=== PATIENT | male | born 1965 | race Caucasian/White ===

== ENCOUNTER → 2024-11-18 | Outpatient (CLI) | payer OTHER, SELFPAY ==
--- NOTE | 2024-11-18 16:22 | US_ITS ---
PROCEDURE: HEAD/NECK SOFT TISSUE 11/18/2024 REASON FOR EXAM: NODULE RT ANTERIOR TECHNIQUE: HEAD/NECK SOFT TISSUE COMPARISON: None FINDINGS: The palpable lump in the right neck corresponds to enlarged right lobe of the thyroid. Right thyroid nodules are seen. The largest measures 5.1 cm 4.5 cm 3 cm. There is also evidence of left thyroid nodules. A targeted ultrasound of the thyroid gland recommended for further evaluation. US/Head/Neck Soft Tissue IMPRESSION: The palpable lumps in the right neck correspond to enlarged thyroid gland with nodules as described. A dedicated ultrasound of the thyroid gland recommended. Reading Location: [place] [id number]
--- NOTE | 2024-11-18 16:22 | US_ITS ---
PROCEDURE: HEAD/NECK SOFT TISSUE 11/18/2024 REASON FOR EXAM: NODULE RT ANTERIOR TECHNIQUE: HEAD/NECK SOFT TISSUE COMPARISON: None FINDINGS: The palpable lump in the right neck corresponds to enlarged right lobe of the thyroid. Right thyroid nodules are seen. The largest measures 5.1 cm 4.5 cm 3 cm. There is also evidence of left thyroid nodules. A targeted ultrasound of the thyroid gland recommended for further evaluation. US/Head/Neck Soft Tissue IMPRESSION: The palpable lumps in the right neck correspond to enlarged thyroid gland with nodules as described. A dedicated ultrasound of the thyroid gland recommended. Reading Location: [place] [id number]
--- OUTSIDE RECORDS SUMMARY | 2024-11-18 21:27 | XMS RPT_ITS | CCD ---
Author Organization [facility] Inform ion Partnership [facility] Care Team Providers Care Termite Inspector Name Role Phone John Squires Unavailable SURAJ MORENO, DR AJITH Araya Primary Care Physician Caprice Ajith Whitney Referring Unavailable Ajith Jarrell Attending Unavailable Ajith Jarrell Primary Care Unavailable Medications Current Medications Medication Drug Class(es) Dates Sig (Normalized) Sig (Original) cephalexin 500 mg oral capsule (1 source) Cephalosporin Antibacterial Start: 10-26-2021 End: 11-02-2021 cephalexin 500 mg oral capsule Dose : 500 mg = 1 cap(s), Oral, QID, X 7 day(s), # 28 cap(s), 0 Refill(s), 11/02/21 22:37:00 EDT Start Date: 10/26/21 Stop Date: 11/02/21 Status: Ordered sulfamethoxazole 800 mg / trimethoprim 160 mg oral tablet (1 source) Dihydrofolate Reductase Inhibitor Antibacterial, Sulfonamide Antimicrobial Start: 10-26-2021 End: 11-05-2021 take 1 tablet by mouth twice daily Bactrim DS 800 mg-160 mg oral tablet Dose = 1 tab(s), Oral, BID, X 10 day(s), # 20 tab(s), 0 Refill(s) Start Date: 10/26/21 Stop Date: 11/05/21 Status: Ordered Completed/Discontinued Medications Medication Drug Class(es) Dates Sig (Normalized) Sig (Original) amLODIPine 5 mg oral tablet (1 source) Dihydropyridine Calcium Channel Mignon take 1 tablet by mouth once daily NORVASC 5 MG TABS One tablet by mouth daily AMLODIPINE BESYLATE [id number] Bryanna Lazaro LPN lisinopril 40 mg oral tablet (1 source) Angiotensin Converting Enzyme Inhibitor take 1 tablet by mouth once daily LISINOPRIL 40 MG TABS One tablet by mouth daily LISINOPRIL [id number] Bryanna Lazaro [employer] Problems Problem Classification Problem Date Documented Da te Episodic/Chronic Essential hypertension (1 source) Benign hypertension; Translations: [Essential (primary) hypertension] Onset: 12-05-2011 12-05-2011 Chronic Other skin disorders (1 source) Localized swelling, mass and lump, neck; Translations: [Localized swelling, mass and lump, neck] Onset: 11-12-2024 Episodic Skin and subcutaneous tissue infections (1 source) Cellulitis; Translations: [Cellulitis, unspecified] Onset: 10-26-2021 Episodic Unclassified (1 source) Encounter for check-up; Translations: [Encounter for general adult medical examination without abnormal findings] Onset: 02-06-2017 02-06-2017 Unclassified (1 source) General examination of patient ; Translations: [Encounter for other general examination] Onset: 12-05-2011 12-05-2011 Results Test Name Value Interpretation Reference Range Facility XR TIBIA/FIBULA 2 VIEWS LEFT on 10-27-2021 XR TIBIA/FIBULA 2 VIEWS LEFT ORIGINAL EXAMINATION: TWO XRAY VIEWS OF THE LEFT TIBIA/FIBULA 10/26/2021 9:41 pm COMPARISON: None. HISTORY: ORDERING SYSTEM PROVIDED HISTORY: Reason for Exam: pain. Redness and swelling to upper lateral calf. FINDINGS: No acute fracture or dislocation. No large joint effusion. Small plantar calcaneal enthesophyte is noted. There is subcutaneous soft tissue swelling within the lower extremity. IMPRESSION: No acute bony abnormalities. Subcutaneous soft tissue swelling throughout the lower extremity may represent ecchymosis, venous insufficiency edema, or cellulitis. Visual inspection recommended. I have personally reviewed the images of this examination and agree with the resident's findings and interpretation. Interpreted by: Dano Downey Preliminary Report By: Devin Fraire Electronically signed By Dano Downey Dictated Date: 10/26/2021 10:14:22 PM Prelim Date: 10/26/2021 10:20:10 PM Sign Date: 10/26/2021 11:13:21 PM Ordering Provider: FANNIE [facility] [place] .Auto Diffon 10-26-2021 Basophil, Absolute 0.0 10 3/mcL Normal 0.0-0.2 [facility] ([place]) Comment on above: Performed By: #### G FR, BMP #### [address] [address] Basophils/100 WBC (Bld) 0.1 % Normal 0.0-2.5 [facility] [place] Comment on above: Performed By: #### G FR, BMP #### [address] [address] Eosinophil, Absolute 0.1 10 3/mcL Normal 0.0-0.4 [facility] ([place] Comment on above: Performed By: #### G FR, BMP #### [address] [address] Eosinophils/100 WBC (Bld) 0.6 % Normal 0.0-7.0 [facility] [place] Comment on above: Performed By: #### G FR, BMP #### [address] [address] Lymphocyte, Absolute 1.7 10 3/mcL Normal 0.8-3.9 [facility] ([place] Comment on above: Performed By: #### G FR, BMP #### [address] [address] Lymphocytes/100 WBC (Bld) 13.2 % Normal 10.0-50.0 [facility] [place] Comment on above: Performed By: #### G FR, BMP #### [address] [address] Monocyte, Absolute 1.1 10 3/mcL High 0.2-1.0 [facility] ([place] Comment on above: Performed By: #### G FR, BMP #### [address] [address] Monocytes/100 WBC (Bld) 9.0 % Normal 1.7-13.0 [facility] [place] Comment on above: Performed By: #### G FR, BMP #### [address] [address] Neutrophils/100 WBC (Bld) 77.1 % Normal 37.0-80.0 [facility] [place] Comment on above: Performed By: #### G , BMP #### Danny [address] [address] .GFRon 10-26-2021 GFR 74 ml/min/1.73sqm Normal [facility] [place] Comment on above: Result Comment: GFR Population mean for , Non- Americans Ages 20-29 = 116 mL/min/1.73 sq.m. Ages 30-39 = 107 mL/min/1.73 sq.m. Ages 40-49 = 99 mL/min/1.73 sq.m. Ages 50-59 = 93 mL/min/1.73 sq.m. Ages 60-69 = 85 mL/min/1.73 sq.m. Ages 70+ = 75 mL/min/1.73 sq.m. Chronic Kidney Disease: Less than 60 mL/min/1.73 square meters End Stage Renal Disease: Less than 15 mL/min/1.73 square meters Performed By: #### G , BMP #### [address] [address] GFR Non- 61 ml/min/1.73sqm Normal [facility] [place] Comment on above: Result Comment: GFR Population mean for , Non- Americans Ages 20-29 = 116 mL/min/1.73 sq.m. Ages 30-39 = 107 mL/min/1.73 sq.m. Ages 40-49 = 99 mL/min/1.73 sq.m. Ages 50-59 = 93 mL/min/1.73 sq.m. Ages 60-69 = 85 mL/min/1.73 sq.m. Ages 70+ = 75 mL/min/1.73 sq.m. Chronic Kidney Disease: Less than 60 mL/min/1.73 square meters End Stage Renal Disease: Less than 15 mL/min/1.73 square meters Performed By: #### G FR, BMP #### [address] [address] .MDWon 10-26-2021 Monocyte Distribution Width 18.01 Normal 0.00-20.00 [facility] [place] Comment on above: Result Comment: For ED adult patients suspected of sepsis, MDW<=20.0 does not rule out sepsis or risk of sepsis Performed By: #### G , BMP #### [address] [address] .NEUABSon 10-26-2021 Neutrophil, Absolute 9.7 10 3/mcL High 2.9-6.2 [facility] ([place] Comment on above: Performed By: #### G , BMP #### [address] [address] BMPon 10-26-2021 BUN/Creatinine Ratio 11 ratio Normal 7-27 [facility] ([place] Comment on above: Performed By: #### Hola LR, BMP #### [address] [address] Calcium [Mass/Vol] 8.8 mg/dL Normal 8.4-10.2 [facility] ([place] Comment on above: Performed By: #### Hola LR, BMP #### [address] [address] Chloride [Moles/Vol] 101 mmol/L Normal 98-107 [facility] ([place] Comment on above: Performed By: #### G , BMP #### [address] [address] CO2 [Moles/Vol] 33 mmol/L High 22-29 [facility] ([place] Comment on above: Performed By: #### G , BMP #### [address] [address] Creatinine [Mass/Vol] 1.23 mg/dL Normal 0.70-1.30 [facility] ([place] Comment on above: Performed By: #### G FR, BMP #### [address] [address] Electrolyte Balance 5.0 mEq/L Normal 4.0-15.0 [facility] ([place] Comment on above: Performed By: #### G , BMP #### [address] [address] Glucose [Mass/Vol] 132 mg/dL High 70-105 [facility] ([place] Comment on above: Performed By: #### G , BMP #### [address] [address] Potassium [Moles/Vol] 3.1 mmol/L Low 3.5-5.1 [facility] ([place] Comment on above: Performed By: #### G , BMP #### [address] [address] Sodium [Moles/Vol] 139 mmol/L Normal 136-145 [facility] ([place] Comment on above: Performed By: #### Hola LR, BMP #### [address] [address] Urea nitrogen [Mass/Vol] 13 mg/dL Normal 7-18 [facility] [place] Comment on above: Performed By: #### Hola LR, BMP #### [address] [address] CBCon 10-26-2021 Erythrocyte distribution width (RBC) [Ratio] 12.9 % Normal 11.5-14.5 [facility] [place] Comment on above: Performed By: #### Hola LR, BMP #### [address] [address] Hematocrit (Bld) [Volume fraction] 41.4 % Low 42.0-52.0 [facility] [place] Comment on above: Performed By: #### G , BMP #### [address] [address] Hgb 14.0 G/dL Normal 14.0-18.0 [facility] [place] Comment on above: Performed By: #### G , BMP #### [address] [address] MCH (RBC) [Entitic mass] 29.0 pg Normal 27.0-31.2 [facility] [place] Comment on above: Performed By: #### G FR, BMP #### [address] [address] MCHC 33.9 G/dL Normal 31.8-35.4 [facility] [place] Comment on above: Performed By: #### G FR, BMP #### [address] [address] MCV (RBC) [Entitic vol] 85.4 fL Normal 80.0-94.0 [facility] [place] Comment on above: Performed By: #### G FR, BMP #### [address] [address] Platelet 288 10 3/mcL Normal 130-400 [facility] ([place] Comment on above: Performed By: #### G FR, BMP #### [address] [address] Platelet mean volume (Bld) [Entitic vol] 7.9 fL Normal 7.4-10.4 [facility] ([place] Comment on above: Performed By: #### G FR, BMP #### [address] [address] RBC 4.84 10 6/mcL Normal 4.04-6.13 [facility] ([place] Comment on above: Performed By: #### G FR, BMP #### [address] [address] WBC 12.6 10 3/mcL High 4.6-10.8 [facility] ([place] Comment on above: Performed By: #### G FR, BMP #### [address] [address] LABORATORYOrdered By: Marycruz Davis on 10-26-2021 Basophil, Absolute 0.0 103/mcL Invalid Interpretation Code 0.0 - 0.2 10^3/mcL AO Workflow SS Basophils/100 WBC (Bld) 0.1 % Invalid Interpretation Code 0.0 - 2.5 % AO Workflow SS Eosinophil, Absolute 0.1 103/mcL Invalid Interpretation Code 0.0 - 0.4 10^3/mcL AO Workflow SS Eosinophils/100 WBC (Bld) 0.6 % Invalid Interpretation Code 0.0 - 7.0 % AO Workflow SS Erythrocyte distribution width (RBC) [Ratio] 12.9 % Invalid Interpretation Code 11.5 - 14.5 % AO Workflow SS Hematocrit (Bld) [Volume fraction] 41.4 % Invalid Interpretation Code 42.0 - 52.0 % AO Workflow SS Hemoglobin (Bld) [Mass/Vol] 14.0 G/dL Invalid Interpretation Code 14.0 - 18.0 G/dL AO Workflow SS Lymphocyte, Absolute 1.7 103/mcL Invalid Interpretation Code 0.8 - 3.9 10^3/mcL AO Workflow SS Lymphocytes/100 WBC (Bld) 13.2 % Invalid Interpretation Code 10.0 - 50.0 % AO Workflow SS MCH (RBC) [Entitic mass] 29.0 pg Invalid Interpretation Code 27.0 - 31.2 pg AO Workflow SS MCHC 33.9 G/dL Invalid Interpretation Code 31.8 - 35.4 G/dL AO Workflow SS MCV (RBC) [Entitic vol] 85.4 fL Invalid Interpretation Code 80.0 - 94.0 fL AO Workflow SS Monocyte distribution width Auto (Bld) [Entitic vol] 18.01 Invalid Interpretation Code 0.00 - 20.00 AO Workflow SS Comment on above: Result Comment: For ED adult patients suspected of sepsis, MDW<=20.0 does not rule out sepsis or risk of sepsis Monocyte, Absolute 1.1 103/mcL Invalid Interpretation Code 0.2 - 1.0 10^3/mcL AO Workflow SS Monocytes/100 WBC (Bld) 9.0 % Invalid Interpretation Code 1.7 - 13.0 % AO Workflow SS Neutrophil, Absolute 9.7 103/mcL Invalid Interpretation Code 2.9 - 6.2 10^3/mcL AO Workflow SS Neutrophils/100 WBC (Bld) 77.1 % Invalid Interpretation Code 37.0 - 80.0 % AO Workflow SS Platelet mean volume (Bld) [Entitic vol] 7.9 fL Invalid Interpretation Code 7.4 - 10.4 fL AO Workflow SS Platelets (Bld) [#/Vol] 288 103/mcL Invalid Interpretation Code 130 - 400 10^3/mcL AO Workflow SS RBC (Bld) [#/Vol] 4.84 106/mcL Invalid Interpretation Code 4.04 - 6.13 10^6/mcL AO Workflow SS WBC 12.6 103/mcL Invalid Interpretation Code 4.6 - 10.8 10^3/mcL AO Workflow SS LABORATORYOrdered By: Emely Bhat on 10-26-2021 Calcium [Mass/Vol] 8.8 mg/dL Invalid Interpretation Code 8.4 - 10.2 mg/dL AO ADM SS Chloride [Moles/Vol] 101 mmol/L Invalid Interpretation Code 98 - 107 mmol/L AO ADM SS CO2 [Moles/Vol] 33 mmol/L Invalid Interpretation Code 22 - 29 mmol/L AO ADM SS Creatinine [Mass/Vol] 1.23 mg/dL Invalid Interpretation Code 0.70 - 1.30 mg/dL AO ADM SS Electrolyte Balance 5.0 mEq/L Invalid Interpretation Code 4.0 - 15.0 mEq/L AO ADM SS Glucose [Mass/Vol] 132 mg/dL Invalid Interpretation Code 70 - 105 mg/dL AO ADM SS Potassium [Moles/Vol] 3.1 mmol/L Invalid Interpretation Code 3.5 - 5.1 mmol/L AO ADM SS Sodium [Moles/Vol] 139 mmol/L Invalid Interpretation Code 136 - 145 mmol/L AO ADM SS Urea nitrogen [Mass/Vol] 13 mg/dL Invalid Interpretation Code 7 - 18 mg/dL AO ADM SS Urea nitrogen/Creatinine [Mass ratio] 11 ratio Invalid Interpretation Code 7 - 27 ratio AO ADM SS LABORATORYOrdered By: SYSTEM SYSTEM on 10-26-2021 GFR 74 ml/min/1.73sqm Invalid Interpretation Code AO Chemistry S GFR Non- 61 ml/min/1.73sqm Invalid Interpretation Code AO Chemistry S Office Visiton 12-05-2011 Documentation of current medications (procedure) Done Invalid Interpretation Code [facility] Work Phone: [facility] t[facility] None Detected ug/L Normal 0.0-14.9 [facility] No w Clinic Work Phone: Lab Report: [facility] 09-03-19 11 Calcium 8.8 mg/dL Normal 8.5-10.1 [facility] Work Phone: Chloride 102 mmol/L Normal 98-107 [facility] Work Phone: Creatinine 0.9 mg/dL Normal 0.8-1.3 [facility] Work Phone: Glucose mass conc 97 mg/dL Normal 70-110 [facility] Work Phone: Potassium molar conc 3.7 mmol/L Normal 3.5-5.1 [facility] Work Phone: Sodium 140 mmol/L Normal 136-145 [facility] Work Phone: Urea nitrogen 11 mg/dL Normal 7-18 [facility] Now Cli giselle Work Phone: Lab Report: CBCDon 011 Erythrocytes (RBC) 4.83 10*6/uL Normal 4.6-6.2 [facility] Work Phone: Hematocrit (HCT) 42.5 % Normal 40-54 [facility] Work Phone: Hemoglobin mass conc (Bld) 14.2 g/dL Normal 14.0-18.0 [facility] Work Phone: Platelets 278 10*3/mm3 Normal 150-450 [facility] Now [facility] ic Work Phone: WBC (Leukocytes) 6.7 10*3/uL Normal 4.4-11.0 [facility] Work Phone: Lab Report: WCLIPIDon 2010 Cholesterol 184 mg/dL Normal 200 [facility] c Work Phone: HDL Cholesterol 39 mg/dL Low [facility] Work Phone: LDL Cholesterol 118 mg/dL Normal 0-130 [facility] Work Phone: Triglyceride 136 mg/dL Normal [facility] Now Clin ic Work Phone: very low density lipoproteins 27 mg/dL Normal 5-40 [facility] Work Phone: Lab Report: LIVERon 2010 Alanine aminotransferase (ALT) 55 U/L Normal 12-78 [facility] Work Phone: Albumin 4.0 g/dL Normal 3.4-5.0 [facility] Work Phone: Alkaline phosphatase (ALP) 68 U/L Normal 50-136 [facility] Work Phone: Aspartate aminotransferase (AST) 30 U/L Normal 15-37 [facility] Work Phone: Bilirubin (direct) 0.17 mg/dL Normal 0.00-0.30 [facility] No w Clinic Work Phone: Bilirubin (total) 0.70 mg/dL Normal 0.00-1.00 [facility] Work Phone: Clinical Lists Update: 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 08-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 Tobacco use CPHS never Invalid Interpretation Code [facility] Work Phone: Vital Signs Date Time Vital Sign Value Performing Clinician Facility 10-26-2021 22:40-0400 Body temperature 101.3 [degF] DR FANNIE BARRETO MD [facility] 10-26-2021 22:40-0400 Diastolic blood pressure 74 mm[Hg] DR FANNIE BARRETO MD [facility] 10-26-2021 22:40-0400 Heart rate 73 /min DR FANNIE BARRETO MD [facility] 10-26-2021 22:40-0400 Respiratory rate 18 /min DR FANNIE BARRETO MD [facility] 10-26-2021 22:40-0400 Systolic blood pressure 135 mm[Hg] DR FANNIE BARRETO MD [facility] 10-26-2021 20:04-0400 Body temperature 101.66 [degF] DR FANNIE BARRETO MD [facility] 10-26-2021 20:04-0400 Diastolic blood pressure 85 mm[Hg] DR FANNIE BARRETO MD [facility] 10-26-2021 20:04-0400 Heart rate 81 /min DR FANNIE BARRETO MD [facility] 10-26-2021 20:04-0400 Respiratory rate 18 /min DR FANNIE BARRETO MD [facility] 10-26-2021 20:04-0400 Systolic blood pressure 164 mm[Hg] DR FANNIE BARRETO MD [facility] 12-05-2011 11:00-0400 BMI (Body Mass Index) 32.07 kg/m2 John LOPEZ [facility] Work Phone: 12-05-2011 11:00-0400 Body Temperature 97.5 [degF] John LOPEZ [facility] Work Phone: 12-05-2011 11:00-0400 BP Diastolic 96 mm[Hg] John LOPEZ [facility] Work Phone: 12-05-2011 11:00-0400 BP Systolic 156 mm[Hg] John LOPEZ [facility] Work Phone: 12-05-2011 11:00-0400 Pulse (Heart Rate) 65 /min John LOPEZ [facility] Work Phone: 12-05-2011 11:00-0400 Respiratory Rate 13 /min John LOPEZ [facility] Work Phone: 12-05-2011 11:00-0400 Weight 106.87 kg John LOPEZ [facility] Work Phone: 09-27-2010 09:28-0400 Height 182.88 cm John LOPEZ [facility] Work Phone: Encounters Encounter Date Encounter Type Care Provider Facility Start: 11-18-2024 [facility] Facility:[facility] Start: 10-26-2021 End: 10-26-2021 Emergency department patient visit DR FANNIE BARRETO MD [facility] Procedures Date Procedure Procedure Detail Performing Clinician Start: 08-19-2010 End: 05-20-2011 Cardiovascular stress test using treadmill Baljit Lange MD Start: 08-19-2010 End: 05-20-2011 Chest x-ray Baljit Lange MD Start: 08-19-2010 End: 05-20-2011 Electrocardiogram Baljit Lange MD Start: 08-19-2010 End: 05-20-2011 Pulmonary Fuction Test - complete Baljit Lange MD Start: 08-19-2010 End: 05-20-2011 Other Baljit Lange MD Plan of Treatment Date Care Activity Detail Author Start: 02-15-2017 End: 02-15-2017 Appointment Appointment [facility] Work Phone: Start: 02-06-2017 End: 02-06-2017 Chest x-ray X-Ray, Chest, PA & Lateral [facility] Work Phone: Start: 08-19-2010 End: 05-20-2011 Cardiovascular stress test using treadmill Treadmill stress test (no imaging) [facility] Work Phone: Start: 08-19-2010 End: 05-20-2011 Chest x-ray X-Ray, Chest, PA & Lateral [facility] Work Phone: Start: 08-19-2010 End: 05-20-2011 Electrocardiogram EKG [facility] Work Phone: Start: 08-19-2010 End: 05-20-2011 Pulmonary Fuction Test - complete Pulmonary Fuction Test - complete [facility] Work Phone: Start: 08-19-2010 End: 05-20-2011 Other Other [facility] Work Phone: Payers Date Payer Category Payer Private Health Insurance [id number] 2024 Self-pay Unknown [id number] Social History Date Type Detail Facility Start: 10-26-2021 Tobacco smoking status Never s moked tobacco (finding) [facility] Sex Assigned At Sex [facility] Functional Status Date Assessment Result Facility 10-26-2021 Functional Status Ambulating in chakraborty, Ambulating in room, Awake, Bathroom privileges [facility] Mental Status Date Assessment Result Facility 10-26-2021 Mental Status Oriented x [address] [facility] Clinical Note 11-01-2021 Note Date & Type Note Facility 11-01-2021 Note . MICRO - Microbiology PROCEDURE: Blood Culture (bacterial) [*1] SOURCE: Blood BODY SITE: COLLECTED DATE/TIME: 10/26/2021 21:14 EDT RECEIVED DATE/TIME: 10/27/2021 13:54 EDT START DATE/TIME: 10/27/2021 13:54 EDT FREE TEXT SOURCE: FINAL REPORTS Final Report [] Verified Date/Time/Personnel: 11/01/2021 13:59 EDT Blood Culture: No Growth at 5 days. PRELIMINARY REPORTS Preliminary Report [] Verified Date/Time/Personnel: 10/27/2021 14:59 EDT Culture has been received in lab and is no growth to date. Routine cultures are held for 5 days. Performing Locations *1: This test was performed at: [facility], [address] [place] [address], [facility] , [facility] ([place]) Clinical Note 11-01-2021 Note Date & Type Note Facility 11-01-2021 Note . MICRO - Microbiology PROCEDURE: Blood Culture (bacterial) [*1] SOURCE: Blood BODY SITE: COLLECTED DATE/TIME: 10/26/2021 21:14 EDT RECEIVED DATE/TIME: 10/27/2021 13:54 EDT START DATE/TIME: 10/27/2021 13:55 EDT FREE TEXT SOURCE: FINAL REPORTS Final Report [] Verified Date/Time/Personnel: 11/01/2021 13:59 EDT Blood Culture: No Growth at 5 days. PRELIMINARY REPORTS Preliminary Report [] Verified Date/Time/Personnel: 10/27/2021 14:59 EDT Culture has been received in lab and is no growth to date. Routine cultures are held for 5 days. Performing Locations *1: This test was performed at: [facility], [address] [place] [address], [facility] , [facility] ([place]) Clinical Note 10-30-2021 Note Date & Type Note Facility 10-30-2021 Note . MICRO - Microbiology PROCEDURE: Culture Wound Aerobic with Gram Stain [*1] SOURCE: Wound (surface) BODY SITE: Leg L COLLECTED DATE/TIME: 10/26/2021 21:14 EDT RECEIVED DATE/TIME: 10/27/2021 13:47 EDT START DATE/TIME: 10/27/2021 13:47 EDT FREE TEXT SOURCE: FINAL REPORTS Final Report [] Verified Date/Time/Personnel: 10/30/2021 13:32 EDT Moderate Staphylococcus aureus This staphylococci does not demonstrate inducible clindamycin resistance in vitro. Few normal skin deirdre present. Sensitivity testing not indicated. PRELIMINARY REPORTS Preliminary Report [] Verified Date/Time/Personnel: 10/29/2021 07:48 EDT Moderate Staphylococcus aureus This staphylococci does not demonstrate inducible clindamycin resistance in vitro. Final report to follow. Preliminary Report [] Verified Date/Time/Personnel: 10/28/2021 09:33 EDT Moderate Staphylococcus aureus ANGUS to follow STAINS GS [] Verified Date/Time/Personnel: 10/27/2021 14:50 EDT 1+ Epithelial cells 2+ Gram Positive Cocci SUSCEPTIBILITY RESULTS Staphylococcus aureus Antibiotic ANGUS Dilut ANGUS Inter Ampicillin >8 Beta Lactamase Positive Ampicillin/ <=8/4 Susceptible Sulbactam Azithromycin >4 Resistant Cefepime <=4 Susceptible Cefotaxime <=8 Susceptible Ceftaroline <=0.5 Susceptible Ceftriaxone <=4 Susceptible Ciprofloxacin <=1 Susceptible Clindamycin <=0.25 Susceptible Erythromycin >4 Resistant Imipenem <=4 Susceptible Levofloxacin <=1 Susceptible Meropenem <=2 Susceptible Oxacillin <=0.25 Susceptible Penicillin >2 Beta Lactamase Positive Piperacillin/ <=8 Susceptible Tazobactam Tetracycline <=4 Susceptible MICRO - Microbiology SUSCEPTIBILITY RESULTS Staphylococcus aureus Antibiotic ANGUS Dilut ANGUS Inter Trimethoprim/ <=0.5/9.5 Susceptible Sulfa Vancomycin 0.5 Susceptible Performing Locations *1: This test was performed at: [facility], [address] [place] [address], [id number] , [place] [facility] [place] Hospital Discharge instructions 10-27-2021 Note Date & Type Note Facility 10-27-2021 Hospital Discharg e instructions Patient Education 10/26/2021 22:37:52 Cellulitis Skin Infection Cellulitis Cellulitis is an infection of the deep layers of skin. A break in the skin, such as a cut or scratch, can let bacteria under the skin. If the bacteria get to deep layers of the skin, it can be serious. If not treated, cellulitis can get into the bloodstream and lymph nodes. The infection can then spread throughout the body. This causes serious illness. Cellulitis causes the affected skin to become red, swollen, warm, and sore. The reddened areas have a visible border. An open sore may leak fluid (pus). You may have a fever, chills, and pain. Cellulitis is treated with antibiotics taken for 7 to 10 days. An open sore may be cleaned and covered with cool wet gauze. Symptoms should get better 1 to 2 days after treatment is started. Make sure to take all the antibiotics for the full number of days until they are gone. Keep taking the medicine even if your symptoms go away. Home care Follow these tips: Limit the use of the part of your body with cellulitis. If the infection is on your leg, keep your leg raised while sitting. This will help to reduce swelling. Take all of the antibiotic medicine exactly as directed until it is gone. Do not miss any doses, especially during the first 7 days. Don t stop taking the medicine when your symptoms get better. Keep the affected area clean and dry. Wash your hands with soap and warm water before and after touching your skin. Anyone else who touches your skin should also wash his or her hands. Don't share towels. Follow-up care Follow up with your healthcare provider, or as advised. If your infection does not go away on the first antibiotic, your healthcare provider will prescribe a different one. When to seek medical advice Call your healthcare provider right away if any of these occur: Red areas that spread Swelling or pain that gets worse Fluid leaking from the skin (pus) Fever higher of 100.4 F (38.0 C) or higher after 2 days on antibiotics 5713-7661 [employer]. [address] [place] [address]. All rights reserved. This information is not intended as a substitute for professional medical care. Always follow your healthcare professional's instructions. Follow Up Care 10/26/2021 19:59:46 With:AJITH JARRELL Address: [place] [id number], [place] [address]- When:1-2 days Comments:Take both antibiotics as prescribed. Return if worsening severe pain rapid spreading of redness, pus draining from any area, follow-up very closely with your doctor for recheck. [facility] Clinical Note 10-26-2021 Note Date & Type Note Facility 10-26-2021 Note ORIGINAL EXAMINATION: TWO XRAY VIEWS OF THE LEFT TIBIA/FIBULA 10/26/2021 9:41 pm COMPARISON: None. HISTORY: ORDERING SYSTEM PROVIDED HISTORY: Reason for Exam: pain. Redness and swelling to upper lateral calf. FINDINGS: No acute fracture or dislocation. No large joint effusion. Small plantar calcaneal enthesophyte is noted. There is subcutaneous soft tissue swelling within the lower extremity. IMPRESSION: No acute bony abnormalities. Subcutaneous soft tissue swelling throughout the lower extremity may represent ecchymosis, venous insufficiency edema, or cellulitis. Visual inspection recommended. I have personally reviewed the images of this examination and agree with the resident's findings and interpretation. Interpreted by: Dano Downey Preliminary Report By: Devin Fraire Electronically signed By Dano Downey Dictated Date: 10/26/2021 10:14:22 PM Prelim Date: 10/26/2021 10:20:10 PM Sign Date: 10/26/2021 11:13:21 PM Ordering Provider: FANNIE BARRETO [facility] Clinical Note 10-26-2021 Note Date & Type Note Facility 10-26-2021 Note Discharge Instructions Thank you for allowing [facility] to assist you with your healthcare needs. The following is important discharge information regarding your hospital visit. Diagnosis from Today's Visit Cellulitis Knee pain-swelling What to Do Next Instructions from Your Care Team No qualifying data available. Post Acute Orders No qualifying data available. You Need to Schedule the Following Appointments Follow Up with AJITH JARRELL When Within 1-2 days Why: Take both antibiotics as prescribed. Return if worsening severe pain rapid spreading of redness, pus draining from any area, follow-up very closely with your doctor for recheck. Where: [id number] [place] [address]- Allergies No Known Medication Allergies Medications Please ask your primary doctor or pharmacist before taking any other medication not listed, including over the counter drugs, herbal medications, vitamins and or supplements as they may interact with your home medications. What How Much When Instructions Last Dose New cephalexin (cephalexin 500 mg oral capsule) 1 cap by mouth Four (4) times a day Duration: 7 Days Printed Prescription New sulfamethoxazole-trimethoprim (Bactrim DS 800 mg-160 mg oral tablet) 1 tab(s) by mouth Two (2) times a day Duration: 10 Days Printed Prescription Please take this list to your next doctor s visit. Bring all medications you take, including over the counter medications, herbals and other supplements with you to your doctor s visit. Patients and families are reminded to discard old lists and to update any records with all medication providers or retail pharmacies. Education Materials Cellulitis Cellulitis is an infection of the deep layers of skin. A break in the skin, such as a cut or scratch, can let bacteria under the skin. If the bacteria get to deep layers of the skin, it can be serious. If not treated, cellulitis can get into the bloodstream and lymph nodes. The infection can then spread throughout the body. This causes serious illness. Cellulitis causes the affected skin to become red, swollen, warm, and sore. The reddened areas have a visible border. An open sore may leak fluid (pus). You may have a fever, chills, and pain. Cellulitis is treated with antibiotics taken for 7 to 10 days. An open sore may be cleaned and covered with cool wet gauze. Symptoms should get better 1 to 2 days after treatment is started. Make sure to take all the antibiotics for the full number of days until they are gone. Keep taking the medicine even if your symptoms go away. Home care Follow these tips: Limit the use of the part of your body with cellulitis. If the infection is on your leg, keep your leg raised while sitting. This will help to reduce swelling. Take all of the antibiotic medicine exactly as directed until it is gone. Do not miss any doses, especially during the first 7 days. Don t stop taking the medicine when your symptoms get better. Keep the affected area clean and dry. Wash your hands with soap and warm water before and after touching your skin. Anyone else who touches your skin should also wash his or her hands. Don't share towels. Follow-up care Follow up with your healthcare provider, or as advised. If your infection does not go away on the first antibiotic, your healthcare provider will prescribe a different one. When to seek medical advice Call your healthcare provider right away if any of these occur: Red areas that spread Swelling or pain that gets worse Fluid leaking from the skin (pus) Fever higher of 100.4 F (38.0 C) or higher after 2 days on antibiotics 1303-2456 [employer]. [address] [place] [address]. All rights reserved. This information is not intended as a substitute for professional medical care. Always follow your healthcare professional's instructions. Additional Information VACCINATE! IT SAVES LIVES! Members of the community who have not yet received the COVID-19 vaccine and would like to receive it can visit one of [facility] vaccine clinics. There are many vaccine clinic locations within the [facility]. For locations and available times, please visit [email or web address]. It is important to note that some COVID mobile vaccine clinics are held outdoors and may be canceled in rainy or stormy conditions. To learn more about pediatric vaccinations (ages 5-11), we invite you to visit the [facility] webpage. [email or web address]-Frequently-[email or web address] -Questions.html To learn more about the COVID-19 vaccine, we invite you to visit the [employer] website for a list of frequently asked questions. [email or web address] [facility] Patient Portal Access Instructions: Stay connected with your healthcare team and access your personal medical information anytime with the [facility] Patient Portal. If you would like a full copy of your medical records please contact the [facility] Medical Records Department Monday through Monday between 8a.m. and 4:30p.m. Please follow the directions below to access the portal: 1.Access the email account you provided upon registration to the [facility].2.Look for an invitation email from [facility].3.Open the email and access the invitation link: Accept Invitation to [facility].Fill in the required taylor to create your account. Sign into [email or web address] with your username and password that you created in the above steps to stay up to date. You can then view a summary of results, a summary of your visits, and the ability to download your summaries to your computer or send the information securely to a physician. Remember that your healthcare information is confidential, so carefully consider who you will allow to register on the [facility] Patient Portal for access to your information. You can also access the [facility] Patient Portal on the [employer]. Simply click on Health Records under Health Data and then click on the [facility] logo. HOW TO SAFELY DISPOSE OF PRESCRIPTION MEDICATIONS Please use one of the following methods to safely dispose of your unused medications. 1.Use a drug disposal kit: the drug disposal pouch allows you to safely discard your old and unused drugs. Ask your nurse to give you one when you are discharged.2.Visit a local take-back location: Many local pharmacies and police departments have programs that collect old and unwanted prescription drugs. Call your local pharmacy or go to http://Optasite.MamaBear App/9I4Dc1k to find one close to you.3.Make use of household items: Use cat litter or old coffee grounds to dispose medications if other options are not available. Mix your drugs with these household products, seal them in an airtight container and throw it into the garbage. Call [facility]: [phone] to be sure your drugs can be disposed of in this way. Some medicines may require a different approach.4.Never flush your medications down the toilet. IF YOU HAVE BEEN PRESCRIBED AN OPIOIDS FOR PAIN If you have been prescribed an opioid (such as hydrocodone, oxycodone or morphine), it is critical to understand the possible side effects and risks of opioid pain medications. Even when taken as directed, opioids can have several side effects including: Tolerance, meaning you might need to take more of a medication for the same pain relief. Nausea, vomiting and/or constipation. Sleepiness, dizziness, dry mouth, confusion, depression or itching. Physical dependence, meaning you have withdrawal symptoms when a medication is stopped ? this can develop within a few days. KNOW YOUR RESPONSIBILITIES It is important to know exactly how much and how often to take the opioid pain medications you are prescribed. Never take opioids in higher amounts or more often than prescribed. Do not combine opioids with alcohol or other drugs that cause drowsiness, such as benzodiazepines, also known as benzos, including diazepam and alprazolam, muscle relaxants or sleep aids. Never sell or share prescription opioids. This is illegal. Store opioids in a secure place and out of reach of others (including children, family, friends and visitors). The last page(s) of this document has been signed and retained as a CHART COPY Signatures Patient Education Materials Cellulitis Skin Infection Medication Leaflets My discharge plan and instructions have been reviewed and explained to me and I,LUPE MOCTEZUMA understand my current condition and have read and understand these discharge instructions. I have received a written copy of the plan/instructions. If I have questions, I am aware that I should contact my doctor. 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 HISTORY: ORDERING SYSTEM PROVIDED HISTORY: Reason for Exam: pain. Redness and swelling to upper lateral calf. FINDINGS: No acute fracture or dislocation. No large joint effusion. Small plantar calcaneal enthesophyte is noted. There is subcutaneous soft tissue swelling within the lower extremity. IMPRESSION: No acute bony abnormalities. Subcutaneous soft tissue swelling throughout the lower extremity may represent ecchymosis, venous insufficiency edema, or cellulitis. Visual inspection recommended. I have personally reviewed the images of this examination and agree with the resident's findings and interpretation. Interpreted by: Dano Downey Preliminary Report By: Devin Fraire Electronically signed By Dano Downey Dictated Date: 10/26/2021 10:14:22 PM Prelim Date: 10/26/2021 10:20:10 PM Sign Date: 10/26/2021 11:13:21 PM Ordering Provider: FANNIE BARRETO [facility] Evaluation + Plan note 10-26-2021 Note Date & Type Note Facility 10-26-2021 Evaluation + Plan note Diagnostic Tests PendingBlood Culture (bacterial) 10/26/21Blood Culture (bacterial) 10/26/21Culture Wound Aerobic with Gram Stain 10/26/21 [facility] Hospital course Narrative Note Date & Type Note Facility Hospital course Narrative No data available for this section [facility] Summary Purpose Family History No Family History Records FoundNo Family History Records Found Advance Directives No Advanced Directives Records FoundNo Advanced Directives Records Found Additional Source Comments Care Team (unrecognized sect ion and content) Care Team Personnel Name: SURAJ MORENO, AJITH Araya Member Role: Primary Care Physician Address: Address: [place] [id number] [place] [id number] (unrecognized sect ion and content) No Status Records FoundNo Status Records Found INFORMATION SOURCE (unrecogn ized section and content) DATE CREATED AUTHOR 11/13/2021 [facility] ([place]) DATE CREATED AUTHOR AUTHOR'S KRYSTINA ATION 11/12/2024 [facility] FOR RECORDS PERTAINING TO PATIENTS WHO ARE OR HAVE BEEN ENROLLED IN A CHEMICAL DEPENDENCY/SUBSTANCEABUSE PROGRAM, SOME INFORMATION MAY BE OMITTED. This clinical summary was aggregated from multiple sources. Caution should be exercised in using it in the provision of clinical care. This summary normalizes information from multiple sources, and as a consequence, information in this document may materially change the coding, format and clinical context of patient data. In addition, data may be omitted in some cases. CLINICAL DECISIONS SHOULD BE BASED ON THE PRIMARY CLINICAL RECORDS. [employer] [facility]. provides no warranty or guarantee of the accuracy or completeness of information in this document.
--- OUTSIDE RECORDS SUMMARY | 2024-11-18 21:27 | XMS RPT_ITS | CCD ---
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[employer] Problems Problem Classification Problem Date Documented Da [...] 10/26/2021 11:13:21 PM Ordering Provider: FANNIE Engle [facility] ([place]) .Auto Diffon 10-26-2021 Basophil, Absolute 0.0 10 3/mcL Normal 0.0-0.2 [facility] ([place]) Comment on above: Performed By: #### G FR, BMP #### [address] [address] Basophils/100 WBC (Bld) 0.1 % Normal 0.0-2.5 [facility] ([place]) Comment on above: Performed By: #### G FR, BMP #### [address] [address] Eosinophil, Absolute 0.1 10 3/mcL Normal 0.0-0.4 [facility] ([place]) Comment on above: Performed By: #### G FR, BMP #### [address] [address] Eosinophils/100 WBC (Bld) 0.6 % Normal 0.0-7.0 [facility] ([place]) Comment on above: Performed By: #### G FR, BMP #### [address] [address] Lymphocyte, Absolute 1.7 10 3/mcL Normal 0.8-3.9 [facility] ([place]) Comment on above: Performed By: #### G FR, BMP #### [address] [address] Lymphocytes/100 WBC (Bld) 13.2 % Normal 10.0-50.0 [facility] ([place]) Comment on above: Performed By: #### G FR, BMP #### [address] [address] Monocyte, Absolute 1.1 10 3/mcL High 0.2-1.0 [facility] ([place]) Comment on above: Performed By: #### G FR, BMP #### [address] [address] Monocytes/100 WBC (Bld) 9.0 % Normal 1.7-13.0 [facility] ([place]) Comment on above: Performed By: #### G FR, BMP #### [address] [address] Neutrophils/100 WBC (Bld) 77.1 % Normal 37.0-80.0 [facility] ([place]) Comment on above: Performed By: #### G , BMP #### Danny [address] [address] .GFRon 10-26-2021 GFR 74 ml/min/1.73sqm Normal [facility] ([place]) Comment on above: Result Comment: GFR Population [...] Performed By: #### G , BMP #### [address] [address] GFR Non- 61 ml/min/1.73sqm Normal [facility] ([place]) Comment on above: Result Comment: GFR Population [...] Performed By: #### G FR, BMP #### [address] [address] .MDWon 10-26-2021 Monocyte Distribution Width 18.01 Normal 0.00-20.00 [facility] ([place]) Comment on above: Result Comment: For ED adult patients suspected of sepsis, MDW<=20.0 does not rule out sepsis or risk of sepsis Performed By: #### G , BMP #### [address] [address] .NEUABSon 10-26-2021 Neutrophil, Absolute 9.7 10 3/mcL High 2.9-6.2 [facility] ([place]) Comment on above: Performed By: #### G , BMP #### [address] [address] BMPon 10-26-2021 BUN/Creatinine Ratio 11 ratio Normal 7-27 [facility] ([place]) Comment on above: Performed By: #### Hola LR, BMP #### [address] [address] Calcium [Mass/Vol] 8.8 mg/dL Normal 8.4-10.2 [facility] ([place]) Comment on above: Performed By: #### Hola LR, BMP #### [address] [address] Chloride [Moles/Vol] 101 mmol/L Normal 98-107 [facility] ([place]) Comment on above: Performed By: #### G , BMP #### [address] [address] CO2 [Moles/Vol] 33 mmol/L High 22-29 [facility] ([place]) Comment on above: Performed By: #### G , BMP #### [address] [address] Creatinine [Mass/Vol] 1.23 mg/dL Normal 0.70-1.30 [facility] ([place]) Comment on above: Performed By: #### G FR, BMP #### [address] [address] Electrolyte Balance 5.0 mEq/L Normal 4.0-15.0 [facility] ([place]) Comment on above: Performed By: #### G , BMP #### [address] [address] Glucose [Mass/Vol] 132 mg/dL High 70-105 [facility] ([place]) Comment on above: Performed By: #### G , BMP #### [address] [address] Potassium [Moles/Vol] 3.1 mmol/L Low 3.5-5.1 [facility] ([place]) Comment on above: Performed By: #### G , BMP #### [address] [address] Sodium [Moles/Vol] 139 mmol/L Normal 136-145 [facility] ([place]) Comment on above: Performed By: #### Hola LR, BMP #### [address] [address] Urea nitrogen [Mass/Vol] 13 mg/dL Normal 7-18 [facility] ([place]) Comment on above: Performed By: #### Hola LR, BMP #### [address] [address] CBCon 10-26-2021 Erythrocyte distribution width (RBC) [Ratio] 12.9 % Normal 11.5-14.5 [facility] ([place]) Comment on above: Performed By: #### Hola LR, BMP #### [address] [address] Hematocrit (Bld) [Volume fraction] 41.4 % Low 42.0-52.0 [facility] ([place]) Comment on above: Performed By: #### G , BMP #### [address] [address] Hgb 14.0 G/dL Normal 14.0-18.0 [facility] ([place]) Comment on above: Performed By: #### G , BMP #### [address] [address] MCH (RBC) [Entitic mass] 29.0 pg Normal 27.0-31.2 [facility] ([place]) Comment on above: Performed By: #### G FR, BMP #### [address] [address] MCHC 33.9 G/dL Normal 31.8-35.4 [facility] ([place]) Comment on above: Performed By: #### G FR, BMP #### [address] [address] MCV (RBC) [Entitic vol] 85.4 fL Normal 80.0-94.0 [facility] ([place]) Comment on above: Performed By: #### G FR, BMP #### [address] [address] Platelet 288 10 3/mcL Normal 130-400 [facility] ([place]) Comment on above: Performed By: #### G FR, BMP #### [address] [address] Platelet mean volume (Bld) [Entitic vol] 7.9 fL Normal 7.4-10.4 [facility] ([place]) Comment on above: Performed By: #### G FR, BMP #### [address] [address] RBC 4.84 10 6/mcL Normal 4.04-6.13 [facility] ([place]) Comment on above: Performed By: #### G FR, BMP #### [address] [address] WBC 12.6 10 3/mcL High 4.6-10.8 [facility] ([place]) Comment on above: Performed By: #### G FR, BMP #### [address] [address] LABORATORYOrdered By: Marycruz Davis on 10-26-2021 Basophil, [...] current medications (procedure) Done Invalid Interpretation Code [facility] Work Phone: [facility] tMERB None Detected ug/L Normal 0.0-14.9 [facility] No w Clinic Work Phone: Lab Report: [facility] 09-03-19 11 Calcium 8.8 mg/dL Normal 8.5-10.1 [facility] Work Phone: Chloride 102 mmol/L Normal 98-107 [facility] Work Phone: Creatinine 0.9 mg/dL Normal 0.8-1.3 [facility] Work Phone: Glucose mass conc 97 mg/dL Normal 70-110 [facility] Work Phone: Potassium molar conc 3.7 mmol/L Normal 3.5-5.1 [facility] Work Phone: Sodium 140 mmol/L Normal 136-145 [facility] Work Phone: Urea nitrogen 11 mg/dL Normal 7-18 [facility] Now Cli giselle Work Phone: Lab Report: CBCDon 011 Erythrocytes (RBC) 4.83 10*6/uL Normal 4.6-6.2 [facility] Work Phone: Hematocrit (HCT) 42.5 % Normal 40-54 [facility] Work Phone: Hemoglobin mass conc (Bld) 14.2 g/dL Normal 14.0-18.0 [facility] Work Phone: Platelets 278 10*3/mm3 Normal 150-450 [facility] Now Clin ic Work Phone: WBC (Leukocytes) 6.7 10*3/uL Normal 4.4-11.0 [facility] Work Phone: Lab Report: WCLIPIDon 2010 Cholesterol 184 mg/dL Normal 200 [facility] Now Clini c Work Phone: HDL Cholesterol 39 mg/dL Low [facility] Work Phone: LDL Cholesterol 118 mg/dL Normal 0-130 [facility] Work Phone: Triglyceride 136 mg/dL Normal [facility] Now Clin ic Work Phone: very low density lipoproteins 27 mg/dL Normal 5-40 [facility] Work Phone: Lab Report: LIVERon 2010 Alanine aminotransferase (ALT) 55 U/L Normal 12-78 [facility] Work Phone: Albumin 4.0 g/dL Normal 3.4-5.0 [facility] Work Phone: Alkaline phosphatase (ALP) 68 U/L Normal 50-136 [facility] Work Phone: Aspartate aminotransferase (AST) 30 U/L Normal 15-37 [facility] Work Phone: Bilirubin (direct) 0.17 mg/dL Normal 0.00-0.30 [facility] No w Clinic Work Phone: Bilirubin (total) 0.70 mg/dL Normal 0.00-1.00 [facility] Work Phone: Clinical 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 10-26-2021 22:40-0400 Diastolic blood pressure 74 mm[Hg] DR FANNIE BARRETO MD [facility] 10-26-2021 22:40-0400 Heart rate 73 /min DR FANNIE BARRETO MD [facility] 10-26-2021 22:40-0400 Respiratory rate 18 /min DR FANNIE BARRETO MD [facility] 10-26-2021 22:40-0400 Systolic blood pressure 135 mm[Hg] DR FANNIE BARRETO MD [facility] 10-26-2021 20:04-0400 Body temperature 101.66 [degF] DR FANNIE BARRETO MD [facility] 10-26-2021 20:04-0400 Diastolic blood pressure 85 mm[Hg] DR FANNIE BARRETO MD [facility] 10-26-2021 20:04-0400 Heart rate 81 /min DR FANNIE BARRETO MD [facility] 10-26-2021 20:04-0400 Respiratory rate 18 /min DR FANNIE BARRETO MD [facility] 10-26-2021 20:04-0400 Systolic blood pressure 164 mm[Hg] DR FANNIE BARRETO MD [facility] 12-05-2011 11:00-0400 BMI (Body Mass Index) 32.07 kg/m2 John LOPEZ [facility] Work Phone: 12-05-2011 11:00-0400 Body Temperature 97.5 [degF] John LOPEZ [facility] Work Phone: 12-05-2011 11:00-0400 BP Diastolic 96 mm[Hg] John LOPEZ [facility] Work Phone: 12-05-2011 11:00-0400 BP Systolic 156 mm[Hg] John LOPEZ [facility] Work Phone: 12-05-2011 11:00-0400 Pulse (Heart Rate) 65 /min John LOPEZ [facility] Work Phone: 12-05-2011 11:00-0400 Respiratory Rate 13 /min John LOPEZ [facility] Work Phone: 12-05-2011 11:00-0400 Weight 106.87 kg John LOPEZ [facility] Work Phone: 09-27-2010 09:28-0400 Height 182.88 cm John LOPEZ [facility] Work Phone: Encounters Encounter Date Encounter Type Care Provider Facility Start: 11-18-2024 [facility] Facility:[facility] Start: 10-26-2021 End: 10-26-2021 Emergency department patient visit DR FANNIE BARRETO MD [facility] Procedures Date Procedure Procedure Detail Performing Clinician [...] Author Start: 02-15-2017 End: 02-15-2017 Appointment Appointment [facility] Work Phone: Start: 02-06-2017 End: 02-06-2017 Chest x-ray X-Ray, Chest, PA & Lateral [facility] Work Phone: Start: 08-19-2010 End: 05-20-2011 Cardiovascular stress test using treadmill Treadmill stress test (no imaging) [facility] Work Phone: Start: 08-19-2010 End: 05-20-2011 Chest x-ray X-Ray, Chest, PA & Lateral [facility] Work Phone: Start: 08-19-2010 End: 05-20-2011 Electrocardiogram EKG [facility] Work Phone: Start: 08-19-2010 End: 05-20-2011 Pulmonary Fuction Test - complete Pulmonary Fuction Test - complete [facility] Work Phone: Start: 08-19-2010 End: 05-20-2011 Other Other [facility] Work Phone: Payers Date Payer Category Payer Private Health Insurance [id number] 2024 Self-pay Unknown [id number] Social History Date Type Detail Facility Start: 10-26-2021 Tobacco smoking status Never s moked tobacco (finding) [facility] Sex Assigned At Sex [facility] Functional Status Date Assessment Result Facility 10-26-2021 Functional Status Ambulating in chakraborty, Ambulating in room, Awake, Bathroom privileges [facility] Mental Status Date Assessment Result Facility 10-26-2021 Mental Status Oriented x 4 [facility] Clinical Note 11-01-2021 Note Date & [...] Locations *1: This test was performed at: [facility], [address] [place] [address], [facility] , [facility] ([place]) Clinical Note 11-01-2021 Note Date & Type [...] Locations *1: This test was performed at: [facility], [address] [place] [address], [facility] , [facility] ([place]) Clinical Note 10-30-2021 Note Date & Type [...] Locations *1: This test was performed at: [facility], [address] [place] [address], [address] , [place] [facility] ([place]) Hospital Discharge instructions 10-27-2021 Note Date & [...] or higher after 2 days on antibiotics [id number] [employer]. [address] [place] [address]. All rights reserved. This information is not intended as a substitute for professional medical care. Always follow your healthcare professional's instructions. Follow Up Care 10/26/2021 19:59:46 With:AJITH JARRELL Address: [place] [id number] [address]- When:1-2 days Comments:Take both antibiotics as prescribed. Return if worsening severe pain rapid spreading of redness, pus draining from any area, follow-up very closely with your doctor for recheck. [facility] Clinical Note 10-26-2021 Note Date & Type [...] 10/26/2021 11:13:21 PM Ordering Provider: FANNIE BARRETO [facility] Clinical Note 10-26-2021 Note Date & Type Note Facility 10-26-2021 Note Discharge Instructions Thank you for allowing [facility] to assist you with your healthcare needs. [...] doctor for recheck. Where: [id number] [place] [address]- Allergies No Known Medication Allergies Medications Please [...] or higher after 2 days on antibiotics [phone] [employer]. [address] [place] [address]. All rights reserved. This information is not intended as a substitute for professional medical care. Always follow your healthcare professional's instructions. Additional Information VACCINATE! IT SAVES LIVES! Members of the community who have not yet received the COVID-19 vaccine and would like to receive it can visit one of [facility] vaccine clinics. There are many vaccine clinic locations within the [facility]. For locations and available times, please visit [email or web address]. It is important to note that some COVID mobile vaccine clinics are held outdoors and may be canceled in rainy or stormy conditions. To learn more about pediatric vaccinations (ages 5-11), we invite you to visit the [facility] webpage. [email or web address]-[email or web address] -[email or web address].html To learn more about the COVID-19 vaccine, we invite you to visit the [employer] website for a list of frequently asked questions. [email or web address]/[email or web address] [email or web address] [email or web address] [facility] One[facility] Patient Portal Access Instructions: Stay connected with your healthcare team and access your personal medical information anytime with the [facility] Patient Portal. If you would like a full copy of your medical records please contact the [facility] Medical Records Department Monday through Monday between 8a.m. and 4:30p.m. Please follow the directions below to access the portal: 1.Access the email account you provided upon registration to the [facility].2.Look for an invitation email from [facility].3.Open the email and access the invitation link: Accept Invitation to [facility]4.Fill in the required taylor to create your account. Sign into [email or web address] with your username and password that you [...] you will allow to register on the [facility] Patient Portal for access to your information. You can also access the [facility] Patient Portal on the [employer]. Simply click on Health Records under Health Data and then click on the [employer] logo. HOW TO SAFELY DISPOSE OF PRESCRIPTION [...] Call your local pharmacy or go to http://[email or web address].nlighten Technologies/0D1Nu1c to find one close to you.3.Make use of household items: Use cat litter or old coffee grounds to dispose medications if other options are not available. Mix your drugs with these household products, seal them in an airtight container and throw it into the garbage. Call [facility]: [phone] to be sure your drugs can be [...] aware that I should contact my doctor. Patient/Domestic Technician Signature: _ Date/Time: Relationship to Patient: Witness Name/Signature: Date/Time: [facility] Clinical Note 10-26-2021 Note Date & Type [...] 10/26/2021 11:13:21 PM Ordering Provider: FANNIE BARRETO [facility] Evaluation + Plan note 10-26-2021 Note Date & Type Note Facility 10-26-2021 Evaluation + Plan note Diagnostic Tests PendingBlood Culture (bacterial) 10/26/21Blood Culture (bacterial) 10/26/21Culture Wound Aerobic with Gram Stain 10/26/21 [facility] Hospital course Narrative Note Date & Type Note Facility Hospital course Narrative No data available for this section [facility] Summary Purpose Family History No Family History Records FoundNo Family History Records Found Advance Directives No Advanced Directives Records FoundNo Advanced Directives Records Found Additional Source Comments Care Team (unrecognized sect ion and content) Care Team Personnel Name: SURAJ MORENO, AJITH Araya Member Role: Primary Care Physician Address: Address: [place] [address] [id number] [place] [id number] (unrecognized sect ion and content) No Status Records FoundNo Status Records Found INFORMATION SOURCE (unrecogn ized section and content) DATE CREATED AUTHOR 11/13/2021 [facility] ([place]) DATE CREATED AUTHOR AUTHOR'S KRYSTINA ATION 11/12/2024 [facility] FOR RECORDS PERTAINING TO PATIENTS WHO ARE [...] BE BASED ON THE PRIMARY CLINICAL RECORDS. [employer] [facility]. provides no warranty or guarantee of the accuracy or completeness of information in this document.
== END | disposition home or self-care (01) ==
PROVIDERS: PCP Family Medicine; Referring Provider Family Medicine; Visit Provider Family Medicine
DX: R22.1 Localized swelling, mass and lump, neck (principal)
CPT/HCPCS: 76536

== ENCOUNTER → 2024-12-06 | Outpatient (CLI) | payer OTHER, SELFPAY ==
--- NOTE | 2024-12-06 11:56 | US_ITS ---
PROCEDURE: THYROID 12/06/2024 REASON FOR EXAM: NODULES TECHNIQUE: Procedure Code: USTHY Modality: US Procedure: THYROID COMPARISON: 11/18/2024 FINDINGS: Right lobe measures 8.2 x 4.6 x 3.1cm. Essentially homogeneous background echotexture. No abnormal vascularity. Nodules as below: *Upper to midgland, 5.2 x 4.2 x 3.1 cm, solid, mostly isoechoic, TI-RADS 3. *Midgland laterally, 1.1 x 0.9 x 1.3 cm, mixed cystic and solid, hypoechoic, TI- RADS 4. *Lower pole, 1.1 x 1.0 x 1.7 cm, mostly solid, isoechoic, taller than wide on transverse imaging, TI-RADS 4. *Lower pole, 2.9 x 3.1 x 2.4 cm, solid, hypoechoic, punctate echogenic foci, TI- RADS 5. Left lobe measures 5.5 x 1.9 x 1.8 cm. Essentially homogeneous background echotexture. No abnormal vascularity. Nodules as below: *Midgland, 2.2 x 1.6 x 1.5 cm, mixed cystic and solid, isoechoic solid components, TI-RADS 2. *Lower pole, 0.4 x 0.4 x 0.3 cm, calcified, technically TI-RADS 4. *Lower pole, 1.4 x 1.1 x 0.9 cm, mixed cystic and solid, isoechoic solid components, TI-RADS 2. Isthmus measures 4 cm in thickness. US/Thyroid IMPRESSION: 1. Overall assessment is TI-RADS 5. A 5.2 cm TI-RADS 3 nodule on the RIGHT, a 1.7 cm TI-RADS 4 nodule on the RIGHT, and a 3.1 cm TI-RADS 5 nodule on the RIGHT all meet criteria for FNA which is recommended as per the below. Additional nodules warrant follow-up in 1 year per the below. 2. Enlarged multinodular RIGHT lobe. Otherwise essentially homogeneous LEFT lo be of high normal-size. Management recommendations for TI-RADS 2 findings: Not Suspicious: No FNA. Clin cial follow-up recommended. Management recommendations for TI-RADS 3 findings: FNA if = 2.5 cm; Follow if = 1.5 cm at 1, 3, and 5 years. Management recommendations for TI-RADS 4 findings: FNA if = 1.5 cm; Follow if = 1 cm at 1, 2, 3, and 5 years. Management recommendations for TI-RADS 5 findings: FNA if = 1 cm; Follow if = 0 .5 cm annually until 5 years. Recommendations per ACR Thyroid Imaging, Reporting and Data System (TI-RADS): Lonnie louis Paper of the ACR TI-RADS Committee, 2017 (https://linkinghub.[email or web address]/retrieve/pii/[email or web address]) Reading Location: [id number]
--- OUTSIDE RECORDS SUMMARY | 2024-12-06 15:45 | XMS RPT_ITS | CCD ---
Author Organization [facility] ion Partnership [facility] Care Team Providers Care Management Engineer Name Role Phone Viraj LOPEZ, John Osei Unavailable [phone] CHRYSTAL MORENO, DR AJITH Araya Primary Care Physician Caprice vailamitchel Jarrell DO, Dr. Canseco Primary Care Provider [phone] Dr. Ajith Jarrell DO Attending Provider [phone] Dr. Ajith Jarrell DO Referring Provider Ajith Jarrell Primary Care Unavailable Ajith Jarrell Attending Unavailable Ajith Jarrell Referring Unavailable Ajith Jarrell Primary Care Unavailable Ajith Jarrell Attending Unavailable Ajith Jarrell Referring Unavailable Ajith Jarrell Attending Unavailable Ajith [...] One tablet by mouth daily AMLODIPINE BESYLATE [id number] Bryanna Lazaro JOON lisinopril 40 mg oral tablet (1 source) Angiotensin Converting Enzyme Inhibitor take 1 tablet by mouth once daily LISINOPRIL 40 MG TABS One tablet by mouth daily LISINOPRIL [id number] Bryanna Lazaro ORTHOPEDIC CODER Problems Problem Classification Problem Date Documented Date Episodic/Chronic Administrative/social admission (1 source) Patient encounter status; Translations: [Encounter for other administrative examinations] 03-25-2019 Episodic Essential hypertension (1 source) Benign hypertension; Translations: [Essential (primary) hypertension] Onset: 12-05-2011 12-05-2011 Chronic Other skin disorders (1 source) Localized swelling, mass and lump, neck; Translations: [Localized swelling, mass and lump, neck] Onset: 11-22-2024 Episodic Skin and subcutaneous tissue infections (1 source) Cellulitis; Translations: [Cellulitis, unspecified] Onset: 10-26-2021 Episodic Thyroid disorders (1 source) Disorder of thyroid, unspecified; Translations: [Disorder of thyroid, unspecified] Onset: 12-04-2024 Episodic Unclassified (1 source) Encounter for check-up; Translations: [Encounter for general adult medical examination without abnormal findings] Onset: 02-06-2017 02-06-2017 Unclassified (1 source) General examination of patient ; Translations: [Encounter for other general examination] Onset: 12-05-2011 12-05-2011 Results Test Name Value Interpretation Reference Range Facility Head/Neck Soft Tissueon 11-08 Head/Neck Soft Tissue [facility] Imaging Services [address] [place] [address] Head/Neck Soft Tissue MR#: [id number] Acct: [id number] Name: MAR MOCTEZUMA Rep #: [id number] : 1965 M 59 From: Tate cruz MD PCP: Dr. Ajith Jarrell MD Status: REG CLI Study: Head/Neck Soft Tissue Date of Exam: 11/18/24 Exam# [id number] Ordering Dr: Ajith Jarrell DO PROCEDURE: HEAD/NECK SOFT TISSUE 11/18/2024 REASON FOR EXAM: NODULE RT ANTERIOR TECHNIQUE: HEAD/NECK SOFT TISSUE COMPARISON: None FINDINGS: The palpable lump in the right neck corresponds to enlarged right lobe of the thyroid. Right thyroid nodules are seen. The largest measures 5.1 cm 4.5 cm 3 cm. There is also evidence of left thyroid nodules. A targeted ultrasound of the thyroid gland recommended for further evaluation. US/Head/Neck Soft Tissue IMPRESSION: The palpable lumps in the right neck correspond to enlarged thyroid gland with nodules as described. A dedicated ultrasound of the thyroid gland recommended. Reading Location: [place] [address] CC: Dr. Ajith Jarrell MD Dining Service Supervisor: Signed Normal [facility] XR TIBIA/FIBULA 2 VIEWS LEFT on 10-27-2021 [...] 10/26/2021 11:13:21 PM Ordering Provider: FANNIE BARRETO [facility] ([place]) .Auto Diffon 10-26-2021 Basophil, Absolute 0.0 10 3/mcL Normal 0.0-0.2 [facility] ([place]) Comment on above: Performed By: #### G FR, BMP #### [address] [address] Basophils/100 WBC (Bld) 0.1 % Normal 0.0-2.5 [facility] ([place]) Comment on above: Performed By: #### G FR, BMP #### [address] [address] Eosinophil, Absolute 0.1 10 3/mcL Normal 0.0-0.4 [facility] ([place]) Comment on above: Performed By: #### G FR, BMP #### [address] [address] Eosinophils/100 WBC (Bld) 0.6 % Normal 0.0-7.0 [facility] ([place]) Comment on above: Performed By: #### G FR, BMP #### [address] [address] Lymphocyte, Absolute 1.7 10 3/mcL Normal 0.8-3.9 [facility] ([place]) Comment on above: Performed By: #### G FR, BMP #### [address] [address] Lymphocytes/100 WBC (Bld) 13.2 % Normal 10.0-50.0 [facility] ([place]) Comment on above: Performed By: #### G FR, BMP #### [address] [address] Monocyte, Absolute 1.1 10 3/mcL High 0.2-1.0 [facility] ([place]) Comment on above: Performed By: #### G FR, BMP #### [address] [address] Monocytes/100 WBC (Bld) 9.0 % Normal 1.7-13.0 [facility] ([place]) Comment on above: Performed By: #### G FR, BMP #### [address] [address] Neutrophils/100 WBC (Bld) 77.1 % Normal 37.0-80.0 [facility] ([place]) Comment on above: Performed By: #### G , BMP #### Danny [address] [address] .GFRon 10-26-2021 GFR 74 ml/min/1.73sqm Normal [facility] ([place]) Comment on above: Result Comment: GFR Population [...] Performed By: #### G FR, BMP #### [place] [address] [address] GFR Non- 61 ml/min/1.73sqm Normal [facility] ([place]) Comment on above: Result Comment: GFR Population [...] Performed By: #### G FR, BMP #### Danny [address] [address] .MDWon 10-26-2021 Monocyte Distribution Width 18.01 Normal 0.00-20.00 [facility] ([place]) Comment on above: Result Comment: For ED adult patients suspected of sepsis, MDW<=20.0 does not rule out sepsis or risk of sepsis Performed By: #### Hola LR, BMP #### [address] [address] .NEUABSon 10-26-2021 Neutrophil, Absolute 9.7 10 3/mcL High 2.9-6.2 [facility] ([place]) Comment on above: Performed By: #### Hola LR, BMP #### [address] [address] BMPon 10-26-2021 BUN/Creatinine Ratio 11 ratio Normal 7-27 [facility] ([place]) Comment on above: Performed By: #### Hola LR, BMP #### [address] [address] Calcium [Mass/Vol] 8.8 mg/dL Normal 8.4-10.2 [facility] ([place]) Comment on above: Performed By: #### Hola LR, BMP #### [address] [address] Chloride [Moles/Vol] 101 mmol/L Normal 98-107 [facility] ([place]) Comment on above: Performed By: #### Hola LR, BMP #### [address] [address] CO2 [Moles/Vol] 33 mmol/L High 22-29 [facility] ([place]) Comment on above: Performed By: #### Hola LR, BMP #### [address] [address] Creatinine [Mass/Vol] 1.23 mg/dL Normal 0.70-1.30 [facility] ([place]) Comment on above: Performed By: #### Hola LR, BMP #### [address] [address] Electrolyte Balance 5.0 mEq/L Normal 4.0-15.0 [facility] ([place]) Comment on above: Performed By: #### Hola LR, BMP #### [address] [address] Glucose [Mass/Vol] 132 mg/dL High 70-105 [facility] ([place]) Comment on above: Performed By: #### G , BMP #### [address] [address] Potassium [Moles/Vol] 3.1 mmol/L Low 3.5-5.1 [facility] ([place]) Comment on above: Performed By: #### G , BMP #### [address] [address] Sodium [Moles/Vol] 139 mmol/L Normal 136-145 [facility] ([place]) Comment on above: Performed By: #### Hola LR, BMP #### [address] [address] Urea nitrogen [Mass/Vol] 13 mg/dL Normal 7-18 [facility] ([place]) Comment on above: Performed By: #### Hola LR, BMP #### [address] [address] CBCon 10-26-2021 Erythrocyte distribution width (RBC) [Ratio] 12.9 % Normal 11.5-14.5 [facility] ([place]) Comment on above: Performed By: #### Hola LR, BMP #### [address] [address] Hematocrit (Bld) [Volume fraction] 41.4 % Low 42.0-52.0 [facility] ([place]) Comment on above: Performed By: #### Hola LR, BMP #### [address] [address] Hgb 14.0 G/dL Normal 14.0-18.0 [facility] ([place]) Comment on above: Performed By: #### Hola LR, BMP #### [address] [address] MCH (RBC) [Entitic mass] 29.0 pg Normal 27.0-31.2 [facility] ([place]) Comment on above: Performed By: #### Hola LR, BMP #### [address] [address] MCHC 33.9 G/dL Normal 31.8-35.4 [facility] ([place]) Comment on above: Performed By: #### G FR, BMP #### [address] [address] MCV (RBC) [Entitic vol] 85.4 fL Normal 80.0-94.0 [facility] ([place]) Comment on above: Performed By: #### G FR, BMP #### [address] [address] Platelet 288 10 3/mcL Normal 130-400 [facility] ([place]) Comment on above: Performed By: #### G , BMP #### [address] [address] Platelet mean volume (Bld) [Entitic vol] 7.9 fL Normal 7.4-10.4 [facility] ([place]) Comment on above: Performed By: #### G , BMP #### [address] [address] RBC 4.84 10 6/mcL Normal 4.04-6.13 [facility] ([place]) Comment on above: Performed By: #### G FR, BMP #### [address] [address] WBC 12.6 10 3/mcL High 4.6-10.8 [facility] ([place]) Comment on above: Performed By: #### G FR, BMP #### [address] [address] LABORATORYOrdered By: Marycruz Davis on 10-26-2021 Basophil, [...] current medications (procedure) Done Invalid Interpretation Code [facility] Work Phone: Lab Report: [facility] 2010 tMERB None Detected ug/L Normal 0.0-14.9 [facility] No w Clinic Work Phone: Lab Report: [facility] 09-03-19 11 Calcium 8.8 mg/dL Normal 8.5-10.1 [facility] Work Phone: Chloride 102 mmol/L Normal 98-107 [facility] Work Phone: Creatinine 0.9 mg/dL Normal 0.8-1.3 [facility] Work Phone: Glucose mass conc 97 mg/dL Normal 70-110 [facility] Work Phone: Potassium molar conc 3.7 mmol/L Normal 3.5-5.1 [facility] Work Phone: Sodium 140 mmol/L Normal 136-145 [facility] Work Phone: Urea nitrogen 11 mg/dL Normal 7-18 [facility] Now [facility] giselle Work Phone: [facility] Erythrocytes (RBC) 4.83 10*6/uL Normal 4.6-6.2 [facility] Work Phone: Hematocrit (HCT) 42.5 % Normal 40-54 [facility] Work Phone: Hemoglobin mass conc (Bld) 14.2 g/dL Normal 14.0-18.0 [facility] Work Phone: Platelets 278 10*3/mm3 Normal 150-450 [facility] ic Work Phone: WBC (Leukocytes) 6.7 10*3/uL Normal 4.4-11.0 [facility] Work Phone: Lab Report: [facility] 2010 Cholesterol 184 mg/dL Normal 200 [facility] c Work Phone: HDL Cholesterol 39 mg/dL Low [facility] Work Phone: LDL Cholesterol 118 mg/dL Normal 0-130 [facility] Work Phone: Triglyceride 136 mg/dL Normal [facility] ic Work Phone: very low density lipoproteins 27 mg/dL Normal 5-40 [facility] Work Phone: Lab Report: [facility] 2010 Alanine aminotransferase (ALT) 55 U/L Normal 12-78 [facility] Work Phone: Albumin 4.0 g/dL Normal 3.4-5.0 [facility] Work Phone: Alkaline phosphatase (ALP) 68 U/L Normal 50-136 [facility] Work Phone: Aspartate aminotransferase (AST) 30 U/L Normal 15-37 [facility] Work Phone: Bilirubin (direct) 0.17 mg/dL Normal 0.00-0.30 [facility] No w Clinic Work Phone: Bilirubin (total) 0.70 mg/dL Normal 0.00-1.00 [facility] Work Phone: Clinical 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 10-26-2021 22:40-0400 Diastolic blood pressure 74 mm[Hg] DR FANNIE BARRETO MD [facility] 10-26-2021 22:40-0400 Heart rate 73 /min DR FANNIE BARRETO MD [facility] 10-26-2021 22:40-0400 Respiratory rate 18 /min DR FANNIE BARRETO MD [facility] 10-26-2021 22:40-0400 Systolic blood pressure 135 mm[Hg] DR FANNIE BARRETO MD [facility] 10-26-2021 20:04-0400 Body temperature 101.66 [degF] DR FANNIE BARRETO MD [facility] 10-26-2021 20:04-0400 Diastolic blood pressure 85 mm[Hg] DR FANNIE BARRETO MD [facility] 10-26-2021 20:04-0400 Heart rate 81 /min DR FANNIE BARRETO MD [facility] 10-26-2021 20:04-0400 Respiratory rate 18 /min DR FANNIE BARRETO MD [facility] 10-26-2021 20:04-0400 Systolic blood pressure 164 mm[Hg] DR FANNIE BARRETO MD [facility] 12-05-2011 11:00-0400 BMI (Body Mass Index) 32.07 kg/m2 John LOPEZ [facility] Work Phone: 12-05-2011 11:00-0400 Body Temperature 97.5 [degF] John LOPEZ [facility] Work Phone: 12-05-2011 11:00-0400 BP Diastolic 96 mm[Hg] John LOPEZ [facility] Work Phone: 12-05-2011 11:00-0400 BP Systolic 156 mm[Hg] John LOPEZ [facility] Work Phone: 12-05-2011 11:00-0400 Pulse (Heart Rate) 65 /min John LOPEZ [facility] Work Phone: 12-05-2011 11:00-0400 Respiratory Rate 13 /min John LOPEZ [facility] Work Phone: 12-05-2011 11:00-0400 Weight 106.87 kg John LOPEZ [facility] Work Phone: 09-27-2010 09:28-0400 Height 182.88 cm John LOPEZ [facility] Work Phone: Encounters Encounter Date Encounter Type Care Provider Facility Start: 12-06-2024 ambulatory Ajith Jarrell Facility:[facility] Start: [facility] Start: 11-18-2024 End: 11-18-[address] Ajith Jarrell DO Work Phone: -[facility] Start: 11-18-2024 End: 11-18-[address] Ajith Jarrell MD -Ultrasound [facility] Work Phone: Start: 11-18-2024 End: 11-18-2024 ambulatory Ajith Jarrell Facility:[facility] Start: 10-26-2021 End: 10-26-2021 Emergency department patient visit DR FANNIE BARRETO MD [facility] Start: 08-07-[address] Ajith Jarrell DO Work Phone: [facility] Procedures Date Procedure Procedure Detail Performing Clinician Start: 11-18-2024 Ultrasonography of t hyroid and parathyroid Dr. Ajith Jarrell DO Work Phone: Start: 08-19-2010 End: 05-20-2011 Cardiovascular [...] Author Start: 02-15-2017 End: 02-15-2017 Appointment Appointment [facility] Work Phone: Start: 02-06-2017 End: 02-06-2017 Chest x-ray X-Ray, Chest, PA & Lateral [facility] Work Phone: Start: 08-19-2010 End: 05-20-2011 Cardiovascular stress test using treadmill Treadmill stress test (no imaging) [facility] Work Phone: Start: 08-19-2010 End: 05-20-2011 Chest x-ray X-Ray, Chest, PA & Lateral [facility] Work Phone: Start: 08-19-2010 End: 05-20-2011 Electrocardiogram EKG [facility] Work Phone: Start: 08-19-2010 End: 05-20-2011 Pulmonary Fuction Test - complete Pulmonary Fuction Test - complete [facility] Work Phone: Start: 08-19-2010 End: 05-20-2011 Other Other [facility] Work Phone: Payers Date Payer Category Payer Private Health Insurance [id number] 2024 Self-pay Unknown [id number] Unknown [id number] Unknown [id number] Social History Date Type Detail Facility Start: 10-26-2021 Tobacco smoking status Never s moked tobacco (finding) [facility] Sex Assigned At Sex [facility] Tobacco smoking stat [facility] Unknown if ever smoked [facility] Work Phone: Start: 1965 Sex Assigned At Male [facility] Functional Status Date Assessment Result Facility 10-26-2021 Functional Status Ambulating in chakraborty, Ambulating in room, Awake, Bathroom privileges [facility] Mental Status Date Assessment Result Facility 10-26-2021 Mental Status Oriented x 4 [facility] Clinical Notes 10-26-2021 to 11-19-2024 Note Date & Type Note Facility 11-19-2024 Radiology Diagnostic study note [facility] Imaging Services [address] [place], [place] [id number] Head/Neck Soft Tissue MR#: [id number] Acct: [id number] Name: MAR MOCTEZUMA Rep #: [id number] : 1965 M 59 From: Abad Garcia MD PCP: Dr. Ajith Jarrell MD Status: REG Suki LUCILLE Study:Head/Neck Soft Tissue Date of Exam: 11/18/24 Exam# [id number] Ordering Dr: Becky Jarrell DO PROCEDURE: HEAD/NECK SOFT TISSUE 11/18/2024 REASON FOR EXAM: NODULE RT ANTERIOR TECHNIQUE: HEAD/NECK SOFT TISSUE COMPARISON: None FINDINGS: The palpable lump in the right neck corresponds to enlarged right lobe of the thyroid. Right thyroid nodules are seen. The largest measures 5.1 cm 4.5 cm 3 cm. There is also evidence of left thyroid nodules. A targeted ultrasound of the thyroid gland recommended for further evaluation. US/Head/Neck Soft Tissue IMPRESSION: The palpable lumps in the right neck correspond to enlarged thyroid gland with nodules as described. A dedicated ultrasound of the thyroid gland recommended. Reading Location: [place] [address] CC: Dr. Ajith Jarrell MD ~ Dining Service Supervisor: Signed [facility] 11-01-2021 Note . MICRO - Microbiology PROCEDURE: [...] Locations *1: This test was performed at: [facility], [address] [place] [address], [facility] , [facility] ([place]) 11-01-2021 Note . MICRO - Microbiology PROCEDURE: [...] Locations *1: This test was performed at: [address], [facility] , [facility] ([place]) 10-30-2021 Note . MICRO - Microbiology PROCEDURE: [...] Locations *1: This test was performed at: [facility], [address] [place] [address], [address] , [facility] ([place]) 10-27-2021 Hospital Discharge instructions Patient Education 10/26/2021 22:37:52 Cellulitis Skin [...] or higher after 2 days on antibiotics [id number] [employer] [place] [address]. All rights reserved. This information is not intended as a substitute for professional medical care. Always follow your healthcare professional's instructions. Follow Up Care 10/26/2021 19:59:46 With:AJITH JARRELL Address: [place] [id number] [place], [place] [id number]- When:1-2 days Comments:Take both antibiotics as prescribed. Return if worsening severe pain rapid spreading of redness, pus draining from any area, follow-up very closely with your doctor for recheck. [facility] 10-26-2021 Note ORIGINAL EXAMINATION: TWO XRAY VIEWS [...] 10/26/2021 11:13:21 PM Ordering Provider[facility] Note Discharge Instructions Thank you for allowing [place] to assist you with your healthcare needs. [...] doctor for recheck. Where: [address] [id number] [place] [address]- Allergies No Known Medication Allergies Medications Please [...] or higher after 2 days on antibiotics [id number] [employer]. [address] [place] [address], [place] [address]. All rights reserved. This information is not intended as a substitute for professional medical care. Always follow your healthcare professional's instructions. Additional Information VACCINATE! IT SAVES LIVES! Members of the community who have not yet received the COVID-19 vaccine and would like to receive it can visit one of [facility] vaccine clinics. There are many vaccine clinic locations within the [facility]. For locations and available times, please visit [email or web address]. It is important to note that some COVID mobile vaccine clinics are held outdoors and may be canceled in rainy or stormy conditions. To learn more about pediatric vaccinations (ages 5-11), we invite you to visit the [facility] webpage. [email or web address] To learn more about the COVID-19 vaccine, we invite you to visit the [facility] website for a list of frequently asked questions. [email or web address] [facility] Patient Portal Access Instructions: Stay connected with your healthcare team and access your personal medical information anytime with the [employer] [employer] Patient Portal. If you would like a full copy of your medical records please contact the [facility] Medical Records Department Monday through Monday between 8a.m. and 4:30p.m. Please follow the directions below to access the portal: 1.Access the email account you provided upon registration to the [facility].2.Look for an invitation email from [facility].3.Open the email and access the invitation link: Accept Invitation to [facility]4.Fill in the required taylor to create your account. Sign into [email or web address] with your username and password that you [...] you will allow to register on the [facility] Patient Portal for access to your information. You can also access the [facility] [employer] Patient Portal on the [employer] alycia. Simply click on Health Records under Health Data and then click on the Zeph[employer] logo. HOW TO SAFELY DISPOSE OF PRESCRIPTION [...] Call your local pharmacy or go to http://bit.ly/8Q6Ek5z to find one close to you.3.Make use of household items: Use cat litter or old coffee grounds to dispose medications if other options are not available. Mix your drugs with these household products, seal them in an airtight container and throw it into the garbage. Call [facility]: [phone] to be sure your drugs can be [...] aware that I should contact my doctor. Patient/Stogy Roller Signature: Date/Time: Relationship to Patient: Witness Name/Signature: Date/Time: [facility] 10-26-2021 Note ORIGINAL EXAMINATION: TWO XRAY VIEWS [...] 10/26/2021 11:13:21 PM Ordering Provider: FANNIE BARRETO [facility] 10-26-2021 Evaluation + Plan note Diagnostic Tests PendingBlood Culture (bacterial) 10/26/21Blood Culture (bacterial) 10/26/21Culture Wound Aerobic with Gram Stain 10/26/[address] [facility] Evaluation note No assessment inform ation available [facility] Work Phone: Hospital course Narrative No data available for this section [facility] Reason for referral (narrative) No reason for referral information available [facility] Work Phone: Summary Purpose Family History No Family History Records FoundNo Family History Records Found Advance Directives No Advanced Directives Records FoundNo Advanced Directives Records Found Chief Complaint and Reason for Visit Chief Complaint Admit Date NODULE RT ANTERIOR November 18, 2024 4: 13pm Additional Source Comments Care Team (unrecognized sect ion and content) Care Team Personnel Name: AJITH JARRELL MD Member Role: Primary Care Physician Address: Address: [place] [address], [place] [address]- [place] (unrecognized sect ion and content) No Status Records FoundNo Status Records Found INFORMATION SOURCE (unrecogn ized section and content) DATE CREATED AUTHOR 11/13/2021 [facility] [facility] ([place]) DATE CREATED AUTHOR AUTHOR'S KRYSTINA ATION 12/06/2024 [facility] Care Teams (unrecognized sec tion and content) Team Status: Active Member Role/Relationship Status Dates Dr. Ajith Jarrell DO Primary Care Provider Active Team Status: Inactive Member Role/Relationship Status Dates Dr. Ajith Jarrell DO Primary Care Provider Active Start: November 18, 2024 End: November 18, 2024 Dr. Ajith Jarrell DO Attending Provider Active Start: November 18, 2024 End: November 18, 2024 Dr. Ajith Jarrell DO Referring Provider Active Start: November 18, 2024 End: November 18, 2024 Goals (unrecognized section and content) Goals may be documented in a n alternate section FOR RECORDS PERTAINING TO PATIENTS WHO ARE [...] BE BASED ON THE PRIMARY CLINICAL RECORDS. [employer] [facility]. provides no warranty or guarantee of the accuracy or completeness of information in this document.
== END | disposition home or self-care (01) ==
PROVIDERS: PCP Family Medicine; Referring Provider Family Medicine; Visit Provider Family Medicine
DX: E04.1 Nontoxic single thyroid nodule (principal)
CPT/HCPCS: 36415; 76536; 84439; 84443

== ENCOUNTER 2024-12-23 11:43 | Outpatient (CLI) | payer OTHER, SELFPAY ==
--- NOTE | 2024-12-23 | FLU_PTH ---
PATIENT: LUPE MOCTEZUMA LOC: [facility] U#:[id number] AGE/SX: 59/M ROOM: RE12/23/[address]: Dr. Ramiro Gordon MD : 1965 BED: DIS: 12/23/2024 SPEC #: [id number] RECD: 12/23/24 13:40 STATUS: CAREY REMonica #: [id number] YEISON: 12/23/24 00:[address]: Ramiro Gordon DEPT: CYTOLOGY RECD BY: Wilder Lopez ENTERED: 12/23/24 13:41 SP TYPE: Fluid OTHR DR: Dr. Ajith Jarrell DO Tissues: A - Thyroid gland, NOS B - Thyroid gland, NOS C - Thyroid gland, NOS Procedures: Special Stain Group II Cytospin Fluid HEADER OPERATION: Fine needle aspiration of right thyroid nodule x3 PRE-OP DIAGNOSIS: Right thyroid nodule TISSUE SUBMITTED: A- Right mid medial thyroid, B- Right inferior thyroid, C- Right superior thyroid DIAGNOSIS CYTOLOGY A. Right mid medial thyroid, nodule, FNA (cytospin, smear x4): * Atypical cells of undetermined significance (TBS III). B. Right inferior thyroid, nodule, FNA (cytospin, smear x4): * Atypical cells of undetermined significance (TBS III). C. Right superior thyroid, nodule, FNA (cytospin, smear x4): * Atypical cells of undetermined significance (TBS III). COMMENT A, B, C) Afirma testing will be submitted. CYTOLOGY STUDY Slides are reviewed. CYTOLOGY GROSS A. Received is 4 slides labeled with the patient's name and and designated per the requisition as Right mid medial thyroid nodule. Submitted for cytology and cytospin. B. Received is 4 slides fluid labeled with the patient's name and and designated per the requisition as Right inferior thyroid nodule. Submitted for cytology and cytospin. C. Received is 4 slides labeled with the patient's name and and designated per the requisition as Right superior thyroid nodule. Submitted for cytology and cytospin. Mr 12/23/2024 CPT:30333t2 ADDENDUM ADDENDUM ADDENDUM ADDENDUM ADDENDUM ADDENDUM ADDENDUM ADDENDUM ADDENDUM ADDENDUM ADDENDUM ADDENDUM ADDENDUM ADDENDUM ADDENDUM ADDENDUM ADDENDUM ADDENDUM ADDENDUM ADDENDUM ADDENDUM ADDENDUM ADDENDUM ADDENDUM ADDENDUM ADDENDUM ADDENDUM ADDENDUM ADDENDUM ADDENDUM ADDENDUM ADDENDUM ADDENDUM ADDENDUM 01/20/2025 08:46 ADDENDUM 01/20/2025 08:46 ADDENDUM 01/20/2025 08:46 ADDENDUM 01/20/2025 08:46 ADDENDUM 01/20/2025 08:46 AFIRMA RESULTS REPORT - SPECIMEN A RESULTS INTERPRETATION: The result of this 1.3 cm [place] III nodule A is Afirma GSC benign, which suggests a low risk of cancer of approximately 4%. Treatment like a cytologically benign nodule may be appropriate, including clinical correlation. Afirma XA is not performed on GSC Benign nodules. TERT promoter region analysis is not performed on GSC Benign nodules. AFIRMA RESULTS REPORT - SPECIMEN B RESULTS INTERPRETATION: The result of this 1.7 cm [place] III nodule B is Afirma GSC benign, which suggests a low risk of cancer of approximately 4%. Treatment like a cytologically benign nodule may be appropriate, including clinical correlation. Afirma XA is not performed on GSC Benign nodules. TERT promoter region analysis is not performed on GSC Benign nodules. AFIRMA RESULTS REPORT - SPECIMEN C RESULTS INTERPRETATION: The result of this 5.2 cm [place] III nodule C is Afirma GSC Suspicious and PAX8 / PPARG positive which suggests a risk of cancer of ~75%. This genomic alteration is associated with follicular neoplasms (FA, NIFTP, FVPTC, FTX) and a JORDY-like or [id number] like profile, which includes rates of lymph nodes metastases and extrathyroidal extension that are lower than BRAF V600E- like neoplasms. Clinical correlation and surgical resection should be considered. Consider visiting clinicaltrials.gov to see if there are any available clinical trials relevant to the described molecular variant / fusion discovered on Afirma testing. DNA analysis of the TERT promoter region was not ordered. If you would like to add this test, please call Client Services within 90 days of the sample received date at the top of this report. Please see complete report in e-chart or EMR
== END 2024-12-23 23:59 | disposition home or self-care (01) ==
LOC: LABSPEC 11:43
PROVIDERS: PCP Family Medicine; Referring Provider Surgery; Visit Provider Surgery
DX: E04.1 Nontoxic single thyroid nodule (principal)
CPT/HCPCS: 88108; 88313

== ENCOUNTER → 2025-01-31 | Outpatient (CLI) | payer OTHER, SELFPAY ==
--- NOTE | 2025-01-31 07:20 | US_ITS ---
PROCEDURE: HEAD/NECK SOFT TISSUE 01/31/2025 REASON FOR EXAM: LYMPH NODE MAPPING TECHNIQUE: Procedure Code: USH/N SOFT Modality: US Procedure: HEAD/NECK SOFT TISSUE COMPARISON: None FINDINGS: Right side of the neck: Zone 2: 2 lymph nodes are seen. The largest measures 1.6 cm 1.6 cm x 0.7 cm. Zone 3: 1.5 cm 1.1 cm x 0.6 cm lymph node. Zone 5: 1.5 cm x 1.2 cm x 0.6 cm lymph node as well as a 1.5 cm 1.5 cm 0.6 cm lymph node. Left side of the neck: Zone 2:3 lymph nodes are seen. The largest measures 2.4 cm x 1.5 cm 1 cm. Zone 3: 2 lymph nodes are seen. The larger measures 1.8 cm 1.1 cm x 0.6 cm. Zone 5:2 lymph nodes are seen. The larger measures 1.5 cm 1.2 cm x 0.7 cm. US/Head/Neck Soft Tissue IMPRESSION: Multiple enlarged lymph nodes as described above. Reading Location: [id number]
--- OUTSIDE RECORDS SUMMARY | 2025-01-31 07:31 | XMS RPT_ITS | CCD ---
Author Organization [facility] Care Team Providers Care Registered Health Nurse Name Role Phone John Squires Unavailable CHRYSTAL MORENO, DR AJITH Araya Primary Care Physician Acprice vailable Chrystal BOSS, Dr. Canseco Primary Care Provider Dr. Ajith Jarrell DO Attending Provider Dr. Ajith Jarrell DO Referring Provider Dr. Ramiro Gordon MD Attending Provider Dr. Ajith Jarrell DO Primary Care Physician Dr. Ajith Jarrell DO Attending Physician Dr. Ramiro Gordon MD Attending Physician Dr. Ramiro Gordon MD Referring Provider Ajith Jarrell Primary Care Unavailable Bridgette Jarrellnt Attending Unavailable Chrystal, Ajith Primary Care Unavailable Ramiro Gordon Attending Unavailable Ramiro Gordon Referring Unavailable Chrystal, Ajith Primary Care Unavailable Ramiro Gordon Attending Unavailable Ramiro Gordon Referring Unavailable Chrystal, Ajith Referring Unavailable Chrystal, Ajith Primary Care Unavailable Ramiro Gordon Attending Unavailable Chrystal, Ajith Referring Unavailable Chrystal, Ajith Primary Care Unavailable Chrystal Ajith Attending Unavailable Chrystal, Ajith Referring Unavailable Chrystal, Ajith Primary Care Unavailable Ajith Jarrell Attending Unavailable Medications Current Medications Medication Drug Class(es) Dates Sig (Normalized) Sig (Original) amLODIPine 10 mg oral tablet (3 sources) Dihydropyridine Calcium Channel Mignon Start: 12-23-2024 take 1 tablet by mouth once daily take 1 tablet by mouth once nico y NORVASC 5 MG TABS One tablet by mouth daily AMLODIPINE BESYLATE [id number] Bryanna Lazaro LPN atenolol 25 mg oral tablet (2 sources) beta-Adrenergic Mignon Start: 12-23-2024 take 1 tablet by mouth once daily cephalexin 500 mg oral capsule (1 source) Cephalosporin Antibacterial Start: 10-26-2021 End: 11-02-2021 cephalexin 500 mg oral capsule Dose : 500 mg = 1 cap(s), Oral, QID, X 7 day(s), # 28 cap(s), 0 Refill(s), 11/02/21 22:37:00 EDT Start Date: 10/26/21 Stop Date: 11/02/21 Status: Ordered hydroCHLOROthiazide 25 mg oral tablet (2 sources) Thiazide Diuretic Start: 12-23-2024 lisinopril 40 mg oral tablet (3 sources) Angiotensin Converting Enzyme Inhibitor Start: 12-23-2024 take 1 tablet by mouth once daily take 1 tablet by mouth once nico y LISINOPRIL 40 MG TABS One tablet by mouth daily LISINOPRIL [id number] Bryanna Lazaro FORMING OPERATOR microencapsulated potassium chloride 20 meq extended release oral tablet (1 source) Start: 12-23-2024 take 1 tablet by mouth once daily Potassium Chloride 20 mEq tablet,ER particles/crystals (1 source) Start: 12-23-2024 take 1 tablet by mouth once daily Potassium Chloride 20 mEq tablet,ER particles/cryst als Active 20 meq PO daily December 23, 2024 12:00am sulfamethoxazole 800 mg / trimethoprim 160 mg oral tablet (1 source) Dihydrofolate Reductase Inhibitor Antibacterial, Sulfonamide Antimicrobial Start: 10-26-2021 End: 11-05-2021 take 1 tablet by mouth twice daily Bactrim DS 800 mg-160 mg oral tablet Dose = 1 tab(s), Oral, BID, X 10 day(s), # 20 tab(s), 0 Refill(s) Start Date: 10/26/21 Stop Date: 11/05/21 Status: Ordered Problems Problem Classification Problem Date Documented Date Episodic/Chronic Administrative/social admission (4 sources) Patient encounter status; Translations: [Encounter for other administrative examinations] 03-25-2019 Episodic Essential hypertension (1 source) Benign hypertension; Translations: [Essential (primary) hypertension] Onset: 12-05-2011 12-05-2011 Chronic Other skin disorders (1 source) Localized swelling, mass and lump, neck; Translations: [Localized swelling, mass and lump, neck] Onset: 11-22-2024 Episodic Skin and subcutaneous tissue infections (1 source) Cellulitis; Translations: [Cellulitis, unspecified] Onset: 10-26-2021 Episodic Thyroid disorders (6 sources) Thyroid nodule; Translations: [Nontoxic single thyroid nodule] Onset: 01-06-2025 12-23-2024 Chronic Comment on above: Patient 59-year-old male, euthyroid from an endocrine standpoint, who makes surgical consultation related to recent finding of multiple right-sided thyroid nodules including a dominant superior pole nodule and a highly suspicious inferior pole nodule. Besides these nodules a third nodule met criteria for biopsy as a TI-RADS 4 nodule greater than 1.5 cm (1.7 cm by original measurement). Interestingly, despite the large size of patient's nodules he appears to be entirely asymptomatic. I discussed the prevalence of thyroid nodularity the use of a TI-RADS grading system for their triage. I then extended the recommendation for FNA biopsy for the nodules mentioned. Mr. Moctezuma was receptive and the procedure was undertaken in uncomplicated fashion during today's visit. Full details are given the procedures section of this note. Lastly we discussed potential need to proceed with surgery based on either a concern for cancer or on the nodules large size. Given the nodule size would likely require CT of the neck to assess for thyroid relationship to surrounding anatomy. For now we will simply follow-up today's biopsy results. Thyroid disorders (1 source) Disorder of thyroid, unspecified; Translations: [Disorder of thyroid, unspecified] Onset: 12-03-2024 Episodic Unclassified (1 source) Encounter for check-up; Translations: [Encounter for general adult medical examination without abnormal findings] Onset: 02-06-2017 02-06-2017 Unclassified (1 source) General examination of patient ; Translations: [Encounter for other general examination] Onset: 12-05-2011 12-05-2011 Results Test Name Value Interpretation Reference Range Facility Non-gynecologic cytology rep ortOrdered By: Natali Gupta on 01-08-2025 Study report [facility] Special Stain Group IIon Special Stain Group II Patient Age/Sex Location Account Attending Physician MAR MOCTEZUMA 59/M LABSPEC [id number] Dr. Ramiro Gordon MD Specimen: [id number] Received: 12/23/24 Status: CAREY Swartz Num: [id number] Spec Type: Fluid Subm Dr: Dr. Ramiro Gordon MD HEADER OPERATION: Fine needle aspiration of right thyroid nodule x3 PRE-OP DIAGNOSIS: Right thyroid nodule TISSUE SUBMITTED: A- Right mid medial thyroid, B- Right inferior thyroid, C- Right superior thyroid DIAGNOSIS CYTOLOGY A. Right mid medial thyroid, nodule, FNA (cytospin, smear x4): * Atypical cells of undetermined significance (TBS III). B. Right inferior thyroid, nodule, FNA (cytospin, smear x4): * Atypical cells of undetermined significance (TBS III). C. Right superior thyroid, nodule, FNA (cytospin, smear x4): * Atypical cells of undetermined significance (TBS III). COMMENT A, B, C) Afirma testing will be submitted. CYTOLOGY STUDY Slides are reviewed. CYTOLOGY GROSS A. Received is 4 slides labeled with the patient's name and and designated per the requisition as Right mid medial thyroid nodule. Submitted for cytology and cytospin. B. Received is 4 slides fluid labeled with the patient's name and and designated per the requisition as Right inferior thyroid nodule. Submitted for cytology and cytospin. C. Received is 4 slides labeled with the patient's name and and designated per the requisition as Right superior thyroid nodule. Submitted for cytology and cytospin. 12/23/2024 CPT:89636r0 Patient Age/Sex Location Account Attending Physician MAR MOCTEZUMA 59/M LABSPEC [id number] Dr. Ramiro Gordon MD ADDENDUM Addendum 1 Entered: 01/20/25 AFIRMA RESULTS REPORT - SPECIMEN A RESULTS INTERPRETATION: The result of this 1.3 cm Hemlock III nodule A is Afirma GSC benign, which suggests a low risk of cancer of approximately 4%. Treatment like a cytologically benign nodule may be appropriate, including clinical correlation. Afirma XA is not performed on GSC Benign nodules. TERT promoter region analysis is not performed on GSC Benign nodules. AFIRMA RESULTS REPORT - SPECIMEN B RESULTS INTERPRETATION: The result of this 1.7 cm Hemlock III nodule B is Afirma GSC benign, which suggests a low risk of cancer of approximately 4%. Treatment like a cytologically benign nodule may be appropriate, including clinical correlation. Afirma XA is not performed on GSC Benign nodules. TERT promoter region analysis is not performed on GSC Benign nodules. AFIRMA RESULTS REPORT - SPECIMEN C RESULTS INTERPRETATION: The result of this 5.2 cm Hemlock III nodule C is Afirma GSC Suspicious and PAX8 / PPARG positive which suggests a risk of cancer of 75%. This genomic alteration is associated with follicular neoplasms (FA, NIFTP, FVPTC, FTX) and a JORDY-like or Pdh-AHSN-Wbn-JORDY like profile, which includes rates of lymph nodes metastases and extrathyroidal extension that are lower than BRAF V600E- like neoplasms. Clinical correlation and surgical resection should be considered. Consider visiting clinicaltrials.gov to see if there are any available clinical trials relevant to the described molecular variant / fusion discovered on Afirma testing. DNA analysis of the TERT promoter region was not ordered. If you would like to add this test, please call Client Services within 90 days of the sample received date at the top of this report. Please see complete report in e-chart or EMR Addendum Signed (signature on file) Dr. Natali Gupta MD 01/20/25 0918 Signed (signatur e on file) Dr. Natali Gupta MD 01/08/25 1204 Normal [facility] Comment on above: Performed By: #### P SSII #### [facility] Laboratory [address] [place], [place], [address] Surgery Visit Reporton 12-23 Surgery Visit Report [facility] [address] [place] [address] OFFICE VISIT Date of Service: 12/23/24 MR#: [id number] Acct: [id number] Name: MAR MOCTEZUMA Rep #: [id number] : 1965 Provider: Dr. Ramiro kincaid MD Age/Sex: 59/M Location: [facility] Status: Signed Intake Vital Signs 12/23/24 08:05 Height 5 ft 10 in Weight: 240 lb BMI 34.4 BP 148/85 H Blood Pressure Location Rt brachial Position Sitting Respiration 18 Pulse 52 L Pulse Source Monitor Temp 97.5 F L Temp Source Temporal Pulse Oximetry (%) 98 Oxygen Delivery Method room air Intake Visit Reasons: THYROID NODULE Chief Complaint: thyroid nodule Is patient in pain?: No Allergies No Known Allergies Allergy (Unverified 12/23/24 08:05) Medications ???Medication ???Instructions ???Recorded ???Confirmed ???Type amlodipine 10 mg tablet 10 mg PO QDAY 12/23/24 12/23/24 Hi story atenolol 25 mg tablet 25 mg PO QDAY 12/23/24 12/23/24 Hi story hydrochlorothiazide 25 mg tablet 12.5 mg PO QDAY 12/23/24 12/23/24 History lisinopril 40 mg tablet 40 mg PO QDAY 12/23/24 12/23/24 Hi story potassium chloride 20 mEq 20 meq PO QDAY 12/23/24 12/23/24 H istory tablet,extended release(part/cryst) [facility] Medical History (Updated 12/23/24 @ 14:[address] Ramiro Gordon MD) H/O Mohs micrographic surgery for skin cancer Thyroid nodule Surgical History (Updated 12/23/24 @ 08:04 by Najma Christie LPN) H/O eye surgery Social History (Updated 12/23/24 @ 08:05 by Najma Christie LPN) Smoking Status: Never smoker alcohol intake: current alcohol intake frequency: holidays/special occasions only substance use type: does not use HPI HPI HPI: Patient is a 59-year-old male who presents for evaluation of thyroid nodularity. They are referred for surgical consultation from Dr. Jarrell. This was discovered during recent physical exam with his primary care provider. They do not experience difficulty with swallowing. They do not complain of a new cough. They do not appreciate new voice changes. They do not have a history of snoring/sleep apnea. Additionally, their weight has been stable and they do not have a history of weight gain/loss or an inability to lose despite intentional effort. There is no history of recent fatigue. They do not have a history of heat or cold intolerance. Other symptoms include: Pertinent negatives: No irregular bowel habits, denial of palpitations, denial of anxiety. They do not have a family history of thyroid disorders or endocrinopathies. There is no history of prior radiation exposure. Previous work-up has included thyroid ultrasound. This study was performed on 12/06/2024 and showed a right thyroid lobe measuring 8.2 x 4.6 x 3.1 cm. Within this lobe radiology identified four nodules measuring 5.2 x 4.2 x 3.1 cm rated TI-RADS 3 in the upper to mid gland, 1.1 x 0.9 x 1.3 cm in the mid gland laterally rated TI-RADS 4, 1.1 x 1.0 x 1.7 cm in the lower pole rated TI-RADS 4 and, finally, 2.9 x 3.1 x 2.4 cm and a lower pole rated TI-RADS 5. The left thyroid lobe measured 5.5 x 1.9 x 1.7 cm. Within this lobe radiology identified a nodule measuring 2.2 x 1.6 x 1.5 cm of the mid gland rated TI-RADS 2. Second nodule measured 0.4 x 0.4 x 0.3 cm of the lower pole which was calcified and rated a TI-RADS 4. Lastly there was a 1.4 x 1.1 x 0.9 cm lower pole nodule rated TI-RADS 2. An FNA has not been performed but below is recommended for patient's 5.2 cm TI-RADS 3 nodule, patient's 1.7 cm TI-RADS 4 nodule, and patient's 3.1 cm TI-RADS 5 nodule. Other tests include: TSH: 1.27, free T4: 1.1 (12/06/2024). ROS General General: No weight change, appetite, fatigue, colon cancer, breast cancer or weakness HEENT HEENT: Yes swollen glands; No difficulty swallowing, eye injury, eye surgery or hoarseness Endo Endocrine: No thyroid disease, diabetes mellitus, thyroid cancer, Hair loss, heat intolerance or cold intolerance Skin Skin: No rash or changing moles Musc Musculoskeletal: No back problems, arthritis, rheumatoid arthritis, gout or joint pain Cardio Cardiovascular: Yes high blood pressure; No murmur, pacemaker, heart disease, atrial fibrillation, heart attack, heart stent, palpitations, shortness of breath with exertion or chest pain Psych Psychiatric: No depression, anxiety or hearing voices Resp Respiratory: No shortness of breath, No sleep apnea, No cough, No COPD, No asthma, No emphysema and No wheezing Gastro Gastrointestinal: No abdominal pain, No nausea or vomiting, No diarrhea, No constipation, No blood in stool, No acid reflux, No hemorrhoids, No ulcers, No gallbladder problem and No black,tarry stools Luís Hematologic: No blood thinners, No blood disorders, No bleedin (more content not included)... Normal [facility] T4 Free Directon 12-06-2024 T4 FREE DIRECT 1.10 ng/dL Normal 0.76-1.46 [facility] Comment on above: Performed By: #### L [id number], L506.0400 #### [facility] [address] [place], [address] T4 freeOrdered By: Ajith Alvarez man on 12-06-2024 Free T4 [Mass/Vol] 1.10 ng/dL 0.76-1.46 [facility] TSH DL <= 0.005 mIU/L QnOrde red By: Ajith Lazarhman on 12-06-2024 TSH Qn 1.270 uIU/mL 0.300-4.200 [facility] Thyroidon 12-06-2024 Thyroid [facility] [address] [place], [place] [id number] Thyroid MR#: [id number] Acct: [id number] Name: MAR MOCTEZUMA Rep #: [id number] : 1965 M 59 From: Luis Oliveira MD PCP: Dr. Ajith Jarrell MD Status: REG CLI Study: Thyroid Date of Exam: 12/06/24 Exam# [id number] Ordering Dr: Ajith Jarrell DO PROCEDURE: THYROID 12/06/2024 REASON FOR EXAM: NODULES TECHNIQUE: Procedure Code: USTHY Modality: US Procedure: THYROID COMPARISON: 11/18/2024 FINDINGS: Right lobe measures 8.2 x 4.6 x 3.1cm. Essentially homogeneous background echotexture. No abnormal vascularity. Nodules as below: *Upper to midgland, 5.2 x 4.2 x 3.1 cm, solid, mostly isoechoic, TI-RADS 3. *Midgland laterally, 1.1 x 0.9 x 1.3 cm, mixed cystic and solid, hypoechoic, TI-RADS 4. *Lower pole, 1.1 x 1.0 x 1.7 cm, mostly solid, isoechoic, taller than wide on transverse imaging, TI-RADS 4. *Lower pole, 2.9 x 3.1 x 2.4 cm, solid, hypoechoic, punctate echogenic foci, TI-RADS 5. Left lobe measures 5.5 x 1.9 x 1.8 cm. Essentially homogeneous background echotexture. No abnormal vascularity. Nodules as below: *Midgland, 2.2 x 1.6 x 1.5 cm, mixed cystic and solid, isoechoic solid components, TI-RADS 2. *Lower pole, 0.4 x 0.4 x 0.3 cm, calcified, technically TI-RADS 4. *Lower pole, 1.4 x 1.1 x 0.9 cm, mixed cystic and solid, isoechoic solid components, TI-RADS 2. Isthmus measures 4 cm in thickness. US/Thyroid IMPRESSION: 1. Overall assessment is TI-RADS 5. A 5.2 cm TI-RADS 3 nodule on the RIGHT, a 1.7 cm TI-RADS 4 nodule on the RIGHT, and a 3.1 cm TI-RADS 5 nodule on the RIGHT all meet criteria for FNA which is recommended as per the below. Additional nodules warrant follow-up in 1 year per the below. 2. Enlarged multinodular RIGHT lobe. Otherwise essentially homogeneous LEFT lobe of high normal- size. Management recommendations for TI-RADS 2 findings: Not Suspicious: No FNA. Clincial follow-up recommended. Management recommendations for TI-RADS 3 findings: FNA if = 2.5 cm; Follow if = 1.5 cm at 1, 3, and 5 years. Management recommendations for TI-RADS 4 findings: FNA if = 1.5 cm; Follow if = 1 cm at 1, 2, 3, and 5 years. Management recommendations for TI-RADS 5 findings: FNA if = 1 cm; Follow if = 0.5 cm annually until 5 years. Recommendations per ACR Thyroid Imaging, Reporting and Data System (TI-RADS): White Paper of the ACR TI-RADS Committee, 2017 (https://linkinghub .ClearSlide.com/retri humza/pii/I8491626800 763441) Reading Location: [facility] CC: Dr. Ajith Jarrell MD Measurement Technician: Signed Normal [facility] Thyroid Stim Hormone (TSH)on 12-06-2024 TSH 1.270 uIU/mL Normal 0.300-4.200 [facility] Comment on above: Performed By: #### L [id number], L506.0400 #### [facility] [address] [place], [address] Head/Neck Soft Tissueon 11-08 Head/Neck Soft Tissue [facility] [address] [place], [place] [address] Head/Neck Soft Tissue MR#: [id number] Acct: [id number] Name: MAR MOCTEZUMA Rep #: [id number] : 1965 M 59 From: Tate cruz MD PCP: Dr. Ajith Jarrell MD Status: [facility] CLI Study: Head/Neck Soft Tissue Date of Exam: 11/18/24 Exam# [id number] Ordering Dr: Ajith Jarrell DO PROCEDURE: HEAD/NECK [...] of the thyroid gland recommended. Reading Location: [place] [address] CC: Dr. Ajith Jarrell MD Measurement Technician: Signed Normal [facility] XR TIBIA/FIBULA 2 VIEWS LEFT on 10-27-2021 [...] 10/26/2021 11:13:21 PM Ordering Provider: FANNIE Engle [facility] ([place]) .Auto Diffon 10-26-2021 Basophil, Absolute 0.0 10 3/mcL Normal 0.0-0.2 [facility] ([place]) Comment on above: Performed By: #### G , BMP #### [address] [address] Basophils/100 WBC (Bld) 0.1 % Normal 0.0-2.5 [facility] ([place]) Comment on above: Performed By: #### Hola LR, BMP #### [address] [address] Eosinophil, Absolute 0.1 10 3/mcL Normal 0.0-0.4 [facility] ([place]) Comment on above: Performed By: #### G , BMP #### [address] [address] Eosinophils/100 WBC (Bld) 0.6 % Normal 0.0-7.0 [facility] ([place]) Comment on above: Performed By: #### G , BMP #### [address] [address] Lymphocyte, Absolute 1.7 10 3/mcL Normal 0.8-3.9 [facility] ([place]) Comment on above: Performed By: #### G , BMP #### [address] [address] Lymphocytes/100 WBC (Bld) 13.2 % Normal 10.0-50.0 [facility] ([place]) Comment on above: Performed By: #### Hola LR, BMP #### [address] [address] Monocyte, Absolute 1.1 10 3/mcL High 0.2-1.0 [facility] ([place]) Comment on above: Performed By: #### Hola FR, BMP #### [address] [address] Monocytes/100 WBC (Bld) 9.0 % Normal 1.7-13.0 [facility] ([place]) Comment on above: Performed By: #### Hola FR, BMP #### [address] [address] Neutrophils/100 WBC (Bld) 77.1 % Normal 37.0-80.0 [facility] ([place]) Comment on above: Performed By: #### Hola FR, BMP #### [address] [address] .GFRon 10-26-2021 GFR 74 ml/min/1.73sqm Normal [facility] ([place]) Comment on above: Result Comment: GFR Population [...] Performed By: #### G FR, BMP #### [address] [address] GFR Non- 61 ml/min/1.73sqm Normal [facility] ([place]) Comment on above: Result Comment: GFR Population [...] 15 mL/min/1.73 square meters Performed By: #### Hola LR, BMP #### [address] [address] .MDWon 10-26-2021 Monocyte Distribution Width 18.01 Normal 0.00-20.00 [facility] ([place]) Comment on above: Result Comment: For ED adult patients suspected of sepsis, MDW<=20.0 does not rule out sepsis or risk of sepsis Performed By: #### Hola LR, BMP #### [address] [address] .NEUABSon 10-26-2021 Neutrophil, Absolute 9.7 10 3/mcL High 2.9-6.2 [facility] ([place]) Comment on above: Performed By: #### Hola LR, BMP #### [address] [address] [facility] BUN/Creatinine Ratio 11 ratio Normal 7-27 [facility] ([place]) Comment on above: Performed By: #### G , BMP #### [address] [address] Calcium [Mass/Vol] 8.8 mg/dL Normal 8.4-10.2 [facility] ([place]) Comment on above: Performed By: #### G , BMP #### [address] [address] Chloride [Moles/Vol] 101 mmol/L Normal 98-107 [facility] ([place]) Comment on above: Performed By: #### Hola LR, BMP #### [address] [address] CO2 [Moles/Vol] 33 mmol/L High 22-29 [facility] ([place]) Comment on above: Performed By: #### Hola LR, BMP #### [address] [address] Creatinine [Mass/Vol] 1.23 mg/dL Normal 0.70-1.30 [facility] ([place]) Comment on above: Performed By: #### Hola LR, BMP #### [address] [address] Electrolyte Balance 5.0 mEq/L Normal 4.0-15.0 [facility] ([place]) Comment on above: Performed By: #### Hola LR, BMP #### [address] [address] Glucose [Mass/Vol] 132 mg/dL High 70-105 [facility] ([place]) Comment on above: Performed By: #### Hola LR, BMP #### [address] [address] Potassium [Moles/Vol] 3.1 mmol/L Low 3.5-5.1 [facility] ([place] Comment on above: Performed By: #### Hola LR, BMP #### [address] [address] Sodium [Moles/Vol] 139 mmol/L Normal 136-145 [facility] ([place]) Comment on above: Performed By: #### G FR, BMP #### [address] [address] Urea nitrogen [Mass/Vol] 13 mg/dL Normal 7-18 [facility] ([place]) Comment on above: Performed By: #### Hola LR, BMP #### [address] [address] CBCon 10-26-2021 Erythrocyte distribution width (RBC) [Ratio] 12.9 % Normal 11.5-14.5 [facility] ([place]) Comment on above: Performed By: #### G FR, BMP #### [address] [address] Hematocrit (Bld) [Volume fraction] 41.4 % Low 42.0-52.0 [facility] ([place]) Comment on above: Performed By: #### G FR, BMP #### [address] [address] Hgb 14.0 G/dL Normal 14.0-18.0 [facility] ([place]) Comment on above: Performed By: #### G FR, BMP #### [address] [address] MCH (RBC) [Entitic mass] 29.0 pg Normal 27.0-31.2 [facility] ([place]) Comment on above: Performed By: #### Hola FR, BMP #### [address] [address] MCHC 33.9 G/dL Normal 31.8-35.4 [facility] ([place]) Comment on above: Performed By: #### G FR, BMP #### [address] [address] MCV (RBC) [Entitic vol] 85.4 fL Normal 80.0-94.0 [facility] ([place]) Comment on above: Performed By: #### Hola FR, BMP #### [address] [address] Platelet 288 10 3/mcL Normal 130-400 [facility] ([place]) Comment on above: Performed By: #### G FR, BMP #### [address] [address] Platelet mean volume (Bld) [Entitic vol] 7.9 fL Normal 7.4-10.4 [facility] ([place]) Comment on above: Performed By: #### G FR, BMP #### [address] [address] RBC 4.84 10 6/mcL Normal 4.04-6.13 [facility] ([place]) Comment on above: Performed By: #### G FR, BMP #### [place] [address] [place], [place] [address] WBC 12.6 10 3/mcL High 4.6-10.8 [facility] ([place]) Comment on above: Performed By: #### G FR, BMP #### [place] [address] [place], [place] [address] LABORATORYOrdered By: Marycruz Davis on 10-26-2021 Basophil, [...] current medications (procedure) Done Invalid Interpretation Code [facility] Now Clinic Work Phone: Lab Report: [facility] tMERB None Detected ug/L Normal 0.0-14.9 [facility] No w Clinic Work Phone: [facility]: [facility] Calcium 8.8 mg/dL Normal 8.5-10.1 [facility] Now Clinic Work Phone: Chloride 102 mmol/L Normal 98-107 [facility] Now Clinic Work Phone: Creatinine 0.9 mg/dL Normal 0.8-1.3 [facility] Now Clinic Work Phone: Glucose mass conc 97 mg/dL Normal 70-110 [facility] Now Clinic Work Phone: Potassium molar conc 3.7 mmol/L Normal 3.5-5.1 [facility] Now Clinic Work Phone: Sodium 140 mmol/L Normal 136-145 [facility] Now Clinic Work Phone: Urea nitrogen 11 mg/dL Normal 7-18 [facility] Now Cli giselle Work Phone: Lab Report: [facility] Erythrocytes (RBC) 4.83 10*6/uL Normal 4.6-6.2 [facility] Now Clinic Work Phone: Hematocrit (HCT) 42.5 % Normal 40-54 [facility] Now Clinic Work Phone: Hemoglobin mass conc (Bld) 14.2 g/dL Normal 14.0-18.0 [facility] Now Clinic Work Phone: Platelets 278 10*3/mm3 Normal 150-450 [facility] Now Clin ic Work Phone: WBC (Leukocytes) 6.7 10*3/uL Normal 4.4-11.0 [facility] Now Clinic Work Phone: Lab Report: [facility] 2010 Cholesterol 184 mg/dL Normal 200 [facility] Now Clini c Work Phone: HDL Cholesterol 39 mg/dL Low [facility] Now C linic Work Phone: LDL Cholesterol 118 mg/dL Normal 0-130 [facility] Now C linic Work Phone: Triglyceride 136 mg/dL Normal [facility] Now Clin ic Work Phone: very low density lipoproteins 27 mg/dL Normal 5-40 [facility] Now Clinic Work Phone: Lab Report: LIVERon 2010 Alanine aminotransferase (ALT) 55 U/L Normal 12-78 [facility] Now [facility] Work Phone: Albumin 4.0 g/dL Normal 3.4-5.0 [facility] Work Phone: Alkaline phosphatase (ALP) 68 U/L Normal 50-136 [facility] Now [facility] Work Phone: Aspartate aminotransferase (AST) 30 U/L Normal 15-37 [facility] Now Clinic Work Phone: Bilirubin (direct) 0.17 mg/dL Normal 0.00-0.30 [facility] No w Clinic Work Phone: Bilirubin (total) 0.70 mg/dL Normal 0.00-1.00 [facility] Now Clinic Work Phone: Clinical 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 Ajith Jarrell DO Work Phone: [facility] 12-23-2024 08:05-0400 Body mass index (BMI) [Ratio] 34.4 kg/m2 Dr. Ajith Jarrell DO Work Phone: [facility] 12-23-2024 08:05-0400 Body temperature 97.5 [degF] Dr. Ajith Jarrell DO Work Phone: [facility] 12-23-2024 08:05-0400 Body weight 108.[address] Ajith Jarrell DO Work Phone: [facility] 12-23-2024 08:05-0400 Diastolic blood pressure 85 mm[Hg] Dr. Ajith Jarrell DO Work Phone: [facility] 12-23-2024 08:05-0400 Heart rate 52 /min Dr. Ajith Jarrell DO Work Phone: [facility] 12-23-2024 08:05-0400 Respiratory rate 18 /min Dr. Ajith Jarrell DO Work Phone: [facility] 12-23-2024 08:05-0400 SaO2% (BldA) [Mass fraction] 98 % Dr. Ajith Jarrell DO Work Phone: [facility] 12-23-2024 08:05-0400 Systolic blood pressure 148 mm[Hg] Dr. Ajith Jarrell DO Work Phone: [facility] 10-26-2021 22:40-0400 Body temperature 101.3 [degF] DR FANNIE BARRETO MD [facility] 10-26-2021 22:40-0400 Diastolic blood pressure 74 mm[Hg] DR FANNIE BARRETO MD [facility] 10-26-2021 22:40-0400 Heart rate 73 /min DR FANNIE BARRETO MD [facility] 10-26-2021 22:40-0400 Respiratory rate 18 /min DR FANNIE BARRETO MD [facility] 10-26-2021 22:40-0400 Systolic blood pressure 135 mm[Hg] DR FANNIE BARRETO MD [facility] 10-26-2021 20:04-0400 Body temperature 101.66 [degF] DR FANNIE BARRETO MD [facility] 10-26-2021 20:04-0400 Diastolic blood pressure 85 mm[Hg] DR FANNIE BARRETO MD [facility] 10-26-2021 20:04-0400 Heart rate 81 /min DR FANNIE BARRETO MD [facility] 10-26-2021 20:04-0400 Respiratory rate 18 /min DR FANNIE BARERTO MD [facility] 10-26-2021 20:04-0400 Systolic blood pressure 164 mm[Hg] DR FANNIE BARRETO MD [facility] 12-05-2011 11:00-0400 BMI (Body Mass Index) 32.07 kg/m2 John LOPEZ [facility] Now Clinic Work Phone: 12-05-2011 11:00-0400 Body Temperature 97.5 [degF] John LOPEZ [facility] Now [facility] Work Phone: 12-05-2011 11:00-0400 BP Diastolic 96 mm[Hg] John LOPEZ [facility] Work Phone: 12-05-2011 11:00-0400 BP Systolic 156 mm[Hg] John LOPEZ [facility] Work Phone: 12-05-2011 11:00-0400 Pulse (Heart Rate) 65 /min John LOPEZ [facility] Now [facility]ini c Work Phone: 12-05-2011 11:00-0400 Respiratory Rate 13 /min John LOPEZ [facility] Work Phone: 12-05-2011 11:00-0400 Weight 106.87 kg John LOPEZ [facility] Now [facility] Work Phone: 09-27-2010 09:28-0400 Height 182.88 cm John LOPEZ [facility] Now [facility] Work Phone: Encounters Encounter Date Encounter Type Care Provider Facility Start: 01-31-2025 ambulatory Ajith Jarrell Facility:[facility] Start: 12-23-2024 End: 12-23-[address] Ajith Jarrell DO Work Phone: -Laboratory Specimen Start: 12-23-2024 End: 12-23-[address] Ramiro Gordon MD -Laboratory Specimen Work Phone: Start: 12-23-2024 End: 12-23-[address] Ramiro Gordon MD -[facility] Work Phone: Start: 12-23-2024 End: 12-23-[address] Ajith Jarrell DO Work Phone: -[facility] Start: 12-23-2024 End: 12-23-2024 ambulatory Ajith Jarrell Facility:[facility] Start: 12-06-2024 End: 12-06-[address] Ajith Jarrell DO Work Phone: -Ultrasound [facility] Start: 12-06-2024 End: 12-06-[address] Ajith Jarrell MD -Ultrasound [facility] Work Phone: Start: 12-06-2024 End: 12-06-2024 ambulatory Ajith Jarrell Facility:[facility] Start: 12-03-2024 ambulatory Ajith Jarrell Facility:[facility] Start: 11-18-2024 End: 11-18-[address] Ajith Jarrell DO Work Phone: -Ultrasound [facility] Start: 11-18-2024 End: 11-18-[address] Ajith Jarrell MD -Ultrasound [facility] Work Phone: Start: 11-18-2024 End: 11-18-2024 ambulatory Ajith Jarrell Facility:[facility] Start: 10-26-2021 End: 10-26-2021 Emergency department patient visit DR FANNIE BARRETO MD [facility] Start: 08-07-[address] Ajith Jarrell DO Work Phone: [facility] Procedures Date Procedure Procedure Detail Performing Clinician Start: 12-06-2024 US scan of thyroid Dr. Ajith Jarrell DO Work Phone: Start: 11-18-2024 Ultrasonography of t hyroid and [...] Author Start: 02-15-2017 End: 02-15-2017 Appointment Appointment [facility] Work Phone: Start: 02-06-2017 End: 02-06-2017 Chest x-ray X-Ray, Chest, PA & Lateral [facility] Work Phone: Start: 08-19-2010 End: 05-20-2011 Cardiovascular stress test using treadmill Treadmill stress test (no imaging) [facility] Now [facility] Work Phone: Start: 08-19-2010 End: 05-20-2011 Chest x-ray X-Ray, Chest, PA & Lateral [facility] Work Phone: Start: 08-19-2010 End: 05-20-2011 Electrocardiogram EKG [facility] Work Phone: Start: 08-19-2010 End: 05-20-2011 Pulmonary Fuction Test - complete Pulmonary Fuction Test - complete [facility] Work Phone: Start: 08-19-2010 End: 05-20-2011 Other Other [facility] Now Clinic Work Phone: Payers Date Payer Category Payer Private Health Insurance [id number] 2024 Self-pay Unknown [id number] [id number] Unknown [id number] [id number] Unknown [id number] [id number] Unknown [id number] 2.16.8 [id number] Unknown [id number] [id number] [id number] Unknown [id number] 2.16.8 [id number] Social History Date Type Detail Facility Start: 10-26-2021 End: 12-23-2024 Tobacco smoking status Never smoked tobacco (finding) [facility] Sex Assigned At Sex [facility] Tobacco smoking stat us HIIS Unknown if ever smoked [facility] Work Phone: Start: 1965 Sex Assigned At Male [facility] Sex Male [facility] Functional Status Date Assessment Result Facility 10-26-2021 Functional Status Ambulating in chakraborty, Ambulating in room, Awake, Bathroom privileges [facility] Mental Status Date Assessment Result Facility 10-26-2021 Mental Status Oriented x 4 [facility] [place] [facility] Clinical Notes 10-26-2021 to 12-23-2024 Note Date & Type Note Facility 12-23-2024 Evaluation note Diagnosis Onset Date Resolution Multiple thyroid nodules acute December 23, 2024 7:47am [facility] Work Phone: 1(903) 789-125009-01-2025 Radiology Diagnostic study note [facility] [address] [place], [place] [id number] Thyroid MR#: [id number] Acct: [id number] Name: MAR MOCTEZUMA Rep #: [id number] : 1965 M 59 From: Esperanza Oliveira MD PCP: Dr. Ajith Jarrell MD Status: REG C LI Study:Thyroid Date of Exam: 12/06/24 Exam# [id number] Ordering Dr: Becky Jarrell DO PROCEDURE: THYROID 12/06/2024 REASON FOR EXAM: NODULES TECHNIQUE: Procedure Code: USTHY Modality: US Procedure: THYROID COMPARISON: 11/18/2024 FINDINGS: Right lobe measures 8.2 x 4.6 x 3.1cm. Essentially homogeneous background echotexture. No abnormal vascularity. Nodules as below: *Upper to midgland, 5.2 x 4.2 x 3.1 cm, solid, mostly isoechoic, TI-RADS 3. *Midgland laterally, 1.1 x 0.9 x 1.3 cm, mixed cystic and solid, hypoechoic, TI- RADS 4. *Lower pole, 1.1 x 1.0 x 1.7 cm, mostly solid, isoechoic, taller than wide on transverse imaging, TI-RADS 4. *Lower pole, 2.9 x 3.1 x 2.4 cm, solid, hypoechoic, punctate echogenic foci, TI- RADS 5. Left lobe measures 5.5 x 1.9 x 1.8 cm. Essentially homogeneous background echotexture. No abnormal vascularity. Nodules as below: *Midgland, 2.2 x 1.6 x 1.5 cm, mixed cystic and solid, isoechoic solid components, TI-RADS 2. *Lower pole, 0.4 x 0.4 x 0.3 cm, calcified, technically TI-RADS 4. *Lower pole, 1.4 x 1.1 x 0.9 cm, mixed cystic and solid, isoechoic solid components, TI-RADS 2. Isthmus measures 4 cm in thickness. US/Thyroid IMPRESSION: 1. Overall assessment is TI-RADS 5. A 5.2 cm TI-RADS 3 nodule on the RIGHT, a 1.7 cm TI-RADS 4 nodule on the RIGHT, and a 3.1 cm TI-RADS 5 nodule on the RIGHT all meet criteria for FNA which is recommended as per the below. Additional nodules warrant follow-up in 1 year per the below. 2. Enlarged multinodular RIGHT lobe. Otherwise essentially homogeneous LEFT lobe of high normal-size. Management recommendations for TI-RADS 2 findings: Not Suspicious: No FNA. Clincial follow-up recommended. Management recommendations for TI-RADS 3 findings: FNA if = 2.5 cm; Follow if = 1.5 cm at 1, 3, and5 years. Management recommendations for TI-RADS 4 findings: FNA if = 1.5 cm; Follow if = 1 cm at 1, 2, 3, and 5 years. Management recommendations for TI-RADS 5 findings: FNA if = 1 cm; Follow if = 0.5 cm annually until5 years. Recommendations per ACR Thyroid Imaging, Reporting and Data System (TI-RADS): White Paper of the ACR TI-RADS Committee, 2017 ([email or web address]) Reading Location: [facility] CC: Dr. Ajith Jarrell MD ~ Measurement Technician: Signed [facility]08-12-2025 Radiology Diagnostic study note [facility] Services [address] [place] [id number] Head/Neck Soft Tissue MR#: [id number] Acct: [id number] Name: MAR MOCTEZUMA Rep #: [id number] : 1965 M 59 From: Abad Garcia MD PCP: Dr. Ajith Jarrell MD Status: PATRICK ADKINS Study:Head/Neck Soft Tissue Date of Exam: 11/18/24 Exam# [id number] Ordering Dr: Becky Jarrell DO PROCEDURE: HEAD/NECK [...] of the thyroid gland recommended. Reading Location: [place] [address] CC: Dr. Ajith Jarrell MD ~ Measurement Technician: Signed [facility]07-25-2022 Note. MICRO - Microbiology PROCEDURE: Blood Culture (bacterial) [...] Locations *1: This test was performed at: [address], [facility] , [facility] ([place])11-01-2021 Note. MICRO - Microbiology PROCEDURE: Blood Culture (bacterial) [...] Locations *1: This test was performed at: [facility], [address] [place] [address], [address]- , [facility] ([place])10-30-2021 Note. MICRO - Microbiology PROCEDURE: Culture Wound Aerobic [...] Locations *1: This test was performed at: [facility], [address] [place] [address], [address]- , [facility] ([place])10-27-2021 Hospital Discharge instructions Patient Education 10/26/2021 22:37:52 [...] swollen, warm, and sore. The reddened areas havea visible border. An open sore may leak [...] or higher after 2 days on antibiotics [id number] [employer]. [address] [place] [address]. All rights reserved. This information is not intended as a substitute for professional medical care. Always follow yourhealthcare professional's instructions. Follow Up Care 10/26/2021 19:59:46 With:AJITH JARRELL Address: [place] [address] [address] [place] [address]- When:1-2 days Comments:Take both antibiotics as prescribed. Return if worsening severe pain rapid spreading of redness, pus draining from any area, follow-up very closely with your doctor for recheck. [facility] 07-19-2022 Note ORIGINAL EXAMINATION: TWO XRAY VIEWS OF [...] 10/26/2021 11:13:21 PM Ordering Provider: FANNIE BARRETO [facility]07-19-2022 Note Discharge Instructions Thank you for allowing [facility] to assist you with your healthcare needs. The following is importantdischarge information regarding your hospital visit. Diagnosis from [...] doctor for recheck. Where: [address] [place] [address]- Allergies No Known Medication Allergies Medications Please ask your primary doctor or pharmacist before taking any other medication not listed, including over the counter drugs, herbal medications, vitamins and or supplements as they may interact withyour home medications. What How Much When Instructions [...] swollen, warm, and sore. The reddened areas havea visible border. An open sore may leak [...] or higher after 2 days on antibiotics [id number] [employer]. [address] [place] [address], [place] [address]. All rights reserved. This information is not intended as a substitute for professional medical care. Always follow yourhealthcare professional's instructions. Additional Information VACCINATE! IT SAVES LIVES! Members of the community who have not yet received the COVID-19 vaccine and would like to receive it can visit one of [facility] vaccine clinics. There are many vaccine clinic locations within the [facility]. For locations and available times, please visit [email or web address]. It is important to note that some COVID mobile vaccine clinics are held outdoors and may be canceled in rainy orstormy conditions. To learn more about pediatric vaccinations (ages 5-11), we invite you to visit the [facility] webpage. [email or web address]-[email or web address] stions.htmlTo learn more about the COVID-19 vaccine, we invite you to visit the [facility] website for a list of frequently asked questions. [email or web address] [facility] Patient Portal Access Instructions: Stay connected with your healthcare team and access your personal medical information anytime with the [facility] Patient Portal. If you would like a full copy of your medical records please contact the [facility] Medical Records Department Monday through Monday between 8a.m. and 4:30p.m. Please follow the directions below to access the portal: 1.Access the email account you provided upon registration to the hospital.2.Look for an invitation email from [facility].3.Open the email and access the invitation link: Accept Invitation to [employer]4.Fill in the required taylor to create your account. Sign into [email or web address] with your username and password that you [...] you will allow to register on the [facility] Patient Portal for access to your information. You can also access the [employer] Patient Portal on the [employer] Simply click on Health Records under HangIt and then click on the Danny logo. HOW TO SAFELY DISPOSE OF PRESCRIPTION MEDICATIONS Please use one of the following methods to safely dispose of your unused medications. 1.Use a drug disposal kit: the drug disposal pouch allows you to safely discard your old and unuseddrugs. Ask your nurse to give you one when you are discharged.2.Visit a local take-back location: Many local pharmacies and police departments have programs that collect old and unwanted prescriptiondrugs. Call your local pharmacy or go to http://BedyCasa.Package Concierge/6D3Ey8i to find one close to you.3.Make use of household items: Use cat litter or old coffee grounds to dispose medications if other options arenot available. Mix your drugs with these household products, seal them in an airtight container andthrow it into the garbage. Call [facility]: [phone] to be sure your drugs can be [...] drowsiness, such as benzodiazepines, also known as benzos,including diazepam and alprazolam, muscle relaxants or sleep aids. Never sell or share prescriptionopioids. This is illegal. Store opioids in a [...] questions, I am aware that I should contactmy doctor. Patient/Order Runner Signature: Date/Time: Relationship to Patient: Witness Name/Signature: Date/Time: [facility]07-19-2022 Note ORIGINAL EXAMINATION: TWO XRAY VIEWS OF [...] Date: 10/26/2021 11:13:21 PM Ordering Provider: FANNIE [facility]07-19-2022 Evaluation + Plan note Diagnostic Tests Pending * Blood Culture (bacterial) 10/26/21 * Blood Culture (bacterial) 10/26/21 * Culture Wound Aerobic with Gram Stain 10/26/21 [facility] Evaluation noteNo assessment information available [facility] Work Phone: Hospital course Narrative No data available for this section [facility] Reason for referral (narrative)No reason for referral information [facility] Work Phone: Summary Purpose Family History No Family History Records FoundNo Family History Records Found Advance Directives No Advanced Directives Records FoundNo Advanced Directives Records Found Chief Complaint and Reason for Visit Chief Complaint Admit Date NODULE RT ANTERIOR November 18, 2024 4: 13pm Chief Complaint Admit Date NODULE RT ANTERIOR November 18, 2024 4: 13pm NODULE Disorder of thyroid, unspecified December 06, 2024 11:43am Chief Complaint Admit Date NODULE RT ANTERIOR November 18, 2024 4: 13pm NODULE Disorder of thyroid, unspecified December 06, 2024 11:43am THYROID NODULE December 23, 2024 7:47am Chief Complaint Admit Date NODULE RT ANTERIOR November 18, 2024 4: 13pm NODULE Disorder of thyroid, unspecified December 06, 2024 11:43am THYROID NODULE December 23, 2024 7:47am [facility] December 23, 2024 11:43am Reason for Visit Admit Date Multiple thyroid nodules December 23, 2024 7:47am Additional Source Comments Care Team (unrecognized sect ion and content) Care Team Personnel Name: AJITH JARRELL MD Member Role: Primary Care Physician Address: Address: [facility] [id number] [place] [address]- (unrecognized sect ion and content) No Status Records FoundNo Status Records Found INFORMATION SOURCE (unrecogn ized section and content) DATE CREATED AUTHOR 11/13/2021 [facility] ([place]) DATE CREATED AUTHOR AUTHOR'S KRYSTINA ATION 01/29/2025 [facility] Care Teams (unrecognized sec tion and [...] November 18, 2024 End: November 18, 2024 Team Status: Inactive Member Role/Relationship Status Dates Dr. Ajith Jarrell DO Primary Care Provider Active Start: December 06, 2024 End: December 06, 2024 Dr. Ajith Jarrell DO Attending Provider Active Start: December 06, 2024 End: December 06, 2024 Dr. Ajith Jarrell DO Referring Provider Active Start: December 06, 2024 End: December 06, 2024 Team Status: Inactive Member Role/Relationship Status Dates Dr. Ajith Jarrell DO Primary Care Provider Active Start: December 23, 2024 End: December 23, 2024 Dr. Ajith Jarrell DO Referring Provider Active Start: December 23, 2024 End: December 23, 2024 Dr. Ramiro Gordon MD Attending Provider Active Start: December 23, 2024 End: December 23, 2024 Team Status: Active Member Role/Relationship Status Dates Dr. Ajith Jarrell DO Primary care physician Active Team Status: Inactive Member Role/Relationship Status Dates Dr. Ajith Jarrell DO Primary care physician Active Start: November 18, 2024 End: November 18, 2024 Dr. Ajith Jarrell DO Attending physician Active Start: November 18, 2024 End: November 18, 2024 Dr. Ajith Jarrell DO Referring Provider Active Start: November 18, 2024 End: November 18, 2024 Team Status: Inactive Member Role/Relationship Status Dates Dr. Ajith Jarrell DO Primary care physician Active Start: December 06, 2024 End: December 06, 2024 Dr. Ajith Jarrell DO Attending physician Active Start: December 06, 2024 End: December 06, 2024 Dr. Ajith Jarrell DO Referring Provider Active Start: December 06, 2024 End: December 06, 2024 Team Status: Inactive Member Role/Relationship Status Dates Dr. Ajith Jarrell DO Primary care physician Active Start: December 23, 2024 End: December 23, 2024 Dr. Ajith Jarrell DO Referring Provider Active Start: December 23, 2024 End: December 23, 2024 Dr. Ramiro Gordon MD Attending physician Active Start: December 23, 2024 End: December 23, 2024 Team Status: Inactive Member Role/Relationship Status Dates Dr. Ajith Jarrell DO Primary care physician Active Start: December 23, 2024 End: December 23, 2024 Dr. Ramiro Gordon MD Attending physician Active Start: December 23, 2024 End: December 23, 2024 Dr. Ramiro Gordon MD Referring Provider Active Start: December 23, 2024 End: December 23, 2024 Goals (unrecognized section and content) Goals [...] BE BASED ON THE PRIMARY CLINICAL RECORDS. [employer] provides no warranty or guarantee of the accuracy or completeness of information in this document.
== END | disposition home or self-care (01) ==
PROVIDERS: PCP Family Medicine; Referring Provider Surgery; Visit Provider Surgery
DX: E04.2 Nontoxic multinodular goiter (principal)
CPT/HCPCS: 76536

== ENCOUNTER → 2025-02-05 | Outpatient (CLI) | payer OTHER, SELFPAY ==
--- NOTE | 2025-02-05 08:00 | CYSPIN_PTH ---
PATIENT: LUPE MOCTEZUMA LOC: [facility] U#:[id number] AGE/SX: 59/M ROOM: RE02/05/[address]: Dr. Ramiro Gordon MD : 1965 BED: DIS: 02/05/2025 SPEC #: [id number] RECD: 02/05/25 10:14 STATUS: CAREY REMonica #: [id number] YEISON: 02/05/25 08:[address]: Ramiro Gordon DEPT: CYTOLOGY RECD BY: Ynf Fierro ENTERED: 02/05/25 10:39 SP TYPE: CYSPIN FL OTHR DR: Dr. Ajith Jarrell, DO Tissues: A - LYMPH NODE BIOPSY Procedures: Pap Stain (control) Special Stain Group II Surgery Specimen Level IV Cytospin Fluid HEADER OPERATION: Fine needle aspiration of lymph node PRE-OP DIAGNOSIS: Lymph node TISSUE SUBMITTED: A- Lymph node, level 2 DIAGNOSIS CYTOLOGY A. Lymph node, level 2, FNA (cytospin, cellblock, smear x4): - Few atypical cells of undetermined significance - see note and Comment. Note: The smears show a few epithelioid cells with atypical features. Brown fat is also present. A lymphoid background is lacking and in the absence of lymphoid cells we cannot be certain this sample is from a lymph node. The cytospins and cellblocks are acellular. COMMENT Selected slides/images were reviewed in intradepartmental consultation by Dr Maral Mercado (cytopathology division, [facility]). CYTOLOGY STUDY Slides are reviewed. CYTOLOGY GROSS A. Received is ~50 ml of cloudy fluid and 4 slides labeled with the patient's name and and designated per the requisition as Lymph node. Submitted for cytology and cell block preparation. Mr 02/05/2025 CPT: 33700,88047,[id number]
== END | disposition home or self-care (01) ==
LOC: LABSPEC 10:37
PROVIDERS: PCP Family Medicine; Referring Provider Surgery; Visit Provider Surgery
DX: I89.9 Noninfective disorder of lymphatic vessels and lymph nodes, unspecified (principal)
CPT/HCPCS: 88108; 88305; 88313

== ENCOUNTER → 2025-04-01 | Outpatient (CLI) | payer OTHER, SELFPAY ==
--- NOTE | 2025-04-01 10:18 | US_ITS ---
PROCEDURE: US NEEDLE BIOPSY/SOFT TISSUE 04/01/2025 REASON FOR EXAM: R59.0 - LOCALIZED ENLARGED LYMPH NODES TECHNIQUE: Procedure Code: [id number] Modality: US Procedure: US NEEDLE BIOPSY/SOFT TISSUE. Under direct sonographic guidance, the surgeon performed core biopsies of the right cervical lymph nodes. COMPARISON: Prior ultrasound dated February 05, 2005. FINDINGS: 4 samples were thickened on the lymph node in the zone 2. 6 samples were taken on the lymph node measuring 2.1 cm 1.2 cm 0.7 cm in zone 5 of the right cervical region. US/US Needle Biopsy/Soft Tissue IMPRESSION: Successful ultrasound-guided right cervical lymph node biopsies. Reading Location: [facility]
[2025-04-01] MEDS: Lidocaine 2% (20 ml mdv) 20 ML Vial INFILT (11:15)
[2025-04-01 13:44] LABS: Pathology Sent to OSU SEE PATHOLOGY REPORT
--- NOTE | 2025-04-01 18:56 | PCM.OPRPT ---
Operative Report (Standard) Operative Information Date of Procedure: 04/01/25 Pre-Operative Diagnosis: Suspicious cervical lymphadenopathy in setting of concern for thyroid cancer Post-Operative Diagnosis: Same Surgery/Procedure Performed: Ultrasound-guided FNA biopsy of right level 2 and level 5 lymph nodes software engineering supervisor: No Type of Anesthesia: Local (5 mL ) Procedure Start Time: 11:20 Procedure Stop Time: 11:50 Select all DRAINS/GRAFTS/IMPLANTS that apply: None Estimated Blood Loss: 3 Specimen collected: Yes Description of specimen(s) removed: Multiple aspirates of both level 2 and level 5 lymph nodes Description of surgery: Indication: Suspicious right level 2 and level 5 lymph nodes After obtaining patient consent and conducting a timeout amongst those present, the procedure was commenced by locating the suspicious node in the right level 2 position using ultrasound (after prior identification by process controls technician). Superficially, the skin was cleaned with an alcohol swab and a wheal of local anesthetic was created after instilling 2 ml 1% lidocaine. Then, under ultrasound guidance, multiple passes were made into the right level 2 lymph node starting with a 25-gauge needle. Once an adequate specimen was detected within the hub of the needle, this was handed off the field to our waiting pathology colleagues. A second pass was made in a similar manner using a 22-gauge needle. This specimen, also, was passed off the field for cytopathologic evaluation. A third pass was performed with another 25-gauge needle. Then I paused and awaited preliminary reading from pathology. They confirmed the presence of lymphoid tissue but recommended an additional pass. This was performed with a new 25-gauge needle. I then turned positioning patient in identifying the suspicious level 5 lymph node on the right with ultrasound. Once again a wheal of local anesthetic was created with another 3 mL of lidocaine. A similar sequence as had been performed on the level 2 lymph node was used on this lymph node. However, 2 additional passes were requested from pathology and these were performed with additional 25-gauge and 23-gauge needles. External pressure was applied to the neck to assist with hemostasis. A quick examination was made with ultrasound to exclude any evidence of hematoma formation. Then the surface of the neck was cleaned, dried, and bandages were applied. Patient was gradually returned to the sitting position and after short period of monitoring was dismissed. Wound care instructions and expectations regarding pathologic processing were discussed prior to dismissal. Complications: None Estimated blood loss: 3 ml Surgical Findings: ? Morphologically abnormal?appearing level 2 lymph node on the right with rounded appearance and no clear presence of a fatty hilum ? Slightly more isoechoic appearance of patient's level 5 lymph node with mildly thickened cortex Complications Complications: No
== END | disposition home or self-care (01) ==
PROVIDERS: PCP Family Medicine; Referring Provider Surgery; Visit Provider Surgery
DX: R59.0 Localized enlarged lymph nodes (principal)
CPT/HCPCS: 38505; 76942